=== PATIENT | male | born 1985 | race African-American/Black ===

== ENCOUNTER 2018-08-10 20:44 | Inpatient (IN) | payer MEDICAID ==
[~2018-08-10] VITALS: Ht 170.2 cm; Wt 74.8 kg
[2018-08-10 20:55] VITALS: BP 133/74
[2018-08-10] MEDS ORDERED: NKM (20:55)
--- NOTE | 2018-08-10 20:55 | NUR ---
ED Nurse Note: Pt arrived ED from home, c/o body " twisting" feeling since last night after took " Loratidine". Pt is A/O X 4. Vital signs stable at this time, waiting for orders.
--- NOTE | 2018-08-10 21:10 | NUR ---
ED Nurse Note: Blood sample collected and sent to Lab.
[2018-08-10] MEDS ORDERED: LORazepam 1mg tab ORAL ONE (21:15)
--- NOTE | 2018-08-10 21:18 | NUR ---
ED Nurse Note: Meds given as ordered.
--- NOTE | 2018-08-10 21:20 | Emergency Room Report ---
History of Present Illness General Chief Complaint: General Complaint Source: Patient Present Illness HPI Patient reports that he was having seasonal allergies earlier Had taken his sister's loratadine This caused more tremors and shaking felt twitching Patient had gone to another clinic and was provided with montelukast reports that his twitching has continued Denies any headache denies any chest pain denies any shortness of breath and eyes any vomiting or diarrhea Allergies: Coded Allergies: No Known Allergies (Unverified , 08/10/18) Patient History Past Medical History: see triage record Pertinent Family History: none Reviewed Nursing Documentation: PMH: Agreed; PSxH: Agreed Nursing Documentation-PMH Past Medical History: No Stated History Review of Systems All Other Systems: negative except mentioned in HPI Physical Exam Vital Signs Date Time Temp Pulse Resp B/P (MAP) Pulse Ox O2 Delivery O2 Flow Rate FiO2 08/10/18 20:49 97.9 88 18 137/77 (97) 99 Room Air Sp02 EP Interpretation: reviewed, normal General Appearance: well appearing, no apparent distress Head: normocephalic, atraumatic Eyes: bilateral eye PERRL, bilateral eye EOMI ENT: hearing grossly normal, normal pharynx, TMs + canals normal, uvula midline Neck: full range of motion, supple, no meningismus, no bony tend Respiratory: lungs clear, normal breath sounds, no rhonchi, no respiratory distress, no retraction, no accessory muscle use Cardiovascular #1: normal peripheral pulses, regular rate, rhythm, no edema, no gallop, no JVD, no murmur Gastrointestinal: normal bowel sounds, non tender, soft, no mass, no organomegaly, non-distended, no guarding, no hernia, no pulsatile mass, no rebound Genitourinary: no CVA tenderness Musculoskeletal: normal inspection Neurologic: oriented x3, responsive, manager validation III-XII nml as tested, motor strength/ tone normal, sensory intact Psychiatric: mood/affect normal Skin: normal color, no rash, warm/dry, palpation normal Lymphatic: normal inspection, no adenopathy Medical Decision Making Diagnostic Impression: Primary Impression: Renal failure Additional Impressions: Anemia Hyperkalemia ER Course Given the patient's initial nonspecific complaints blood work was initiated Findings reveal concerning findings with significant anemia and kidney failure with hyperkalemia EKG does not show any ST changes At this time I discussed this with the patient and patient's mom she reports that she has history of anemia but they have not known of any history for the patient On repeat examination all blood work appear to be consistent with initial findings Patient still making urine and therefore further IV hydration was performed Nephrology consulted and patient requires further inpatient care Labs Test 08/10/18 21:13 08/10/18 21:24 08/10/18 22:16 White Blood Count 10.1 K/UL (4.8-10.8) 10.7 K/UL (4.8-10.8) Red Blood Count 2.43 M/UL (4.70-6.10) 2.80 M/UL (4.70-6.10) Hemoglobin 6.4 G/DL (14.2-18.0) 7.4 G/DL (14.2-18.0) Hematocrit 18.0 % (42.0-52.0) 20.7 % (42.0-52.0) Mean Corpuscular Volume 74 FL (80-99) 74 FL (80-99) Mean Corpuscular Hemoglobin 26.5 PG (27.0-31.0) 26.5 PG (27.0-31.0) Mean Corpuscular Hemoglobin Concent 35.8 G/DL (32.0-36.0) 36.0 G/DL (32.0-36.0) Red Cell Distribution Width 12.0 % (11.6-14.8) 12.1 % (11.6-14.8) Platelet Count 199 K/UL (150-450) 199 K/UL (150-450) Mean Platelet Volume 4.7 FL (6.5-10.1) 4.9 FL (6.5-10.1) Neutrophils (%) (Auto) % (45.0-75.0) % (45.0-75.0) Lymphocytes (%) (Auto) % (20.0-45.0) % (20.0-45.0) Monocytes (%) (Auto) % (1.0-10.0) % (1.0-10.0) Eosinophils (%) (Auto) % (0.0-3.0) % (0.0-3.0) Basophils (%) (Auto) % (0.0-2.0) % (0.0-2.0) Differential Total Cells Counted 100 Neutrophils % (Manual) 74 % (45-75) Lymphocytes % (Manual) 14 % (20-45) Monocytes % (Manual) 6 % (1-10) Eosinophils % (Manual) 6 % (0-3) Basophils % (Manual) 0 % (0-2) Band Neutrophils 0 % (0-8) Platelet Estimate Adequate Platelet Morphology Normal Red Blood Cell Morphology Normal Hypochromasia 1+ Anisocytosis 1+ Microcytosis 1+ Sodium Level 141 MMOL/L (136-145) 142 MMOL/L (136-145) Potassium Level 6.4 MMOL/L (3.5-5.1) 6.6 MMOL/L (3.5-5.1) Chloride Level 108 MMOL/L (98-107) 111 MMOL/L (98-107) Carbon Dioxide Level 14 MMOL/L (21-32) 14 MMOL/L (21-32) Anion Gap 19 mmol/L (5-15) 16 mmol/L (5-15) Blood Urea Nitrogen 141 mg/dL (7-18) 136 mg/dL (7-18) Creatinine 29.6 MG/DL (0.55-1.30) 28.6 MG/DL (0.55-1.30) Estimat Glomerular Filtration Rate 2.1 mL/min (>60) 2.2 mL/min (>60) Glucose Level 102 MG/DL (74-106) 125 MG/DL (74-106) Calcium Level 7.7 MG/DL (8.5-10.1) 7.2 MG/DL (8.5-10.1) Urine Color Pale yellow Urine Appearance Slightly cloudy Urine pH 5 (4.5-8.0) Urine Specific [place] 1.010 (1.005-1.035) Urine Protein 4+ (NEGATIVE) Urine Glucose (UA) 1+ (NEGATIVE) Urine Ketones Negative (NEGATIVE) Urine Blood 3+ (NEGATIVE) Urine Nitrite Negative (NEGATIVE) Urine Bilirubin Negative (NEGATIVE) Urine Urobilinogen Normal MG/DL (0.0-1.0) Urine Leukocyte Esterase 1+ (NEGATIVE) Urine RBC 20-30 /HPF (0 - 0) Urine WBC 30-40 /HPF (0 - 0) Urine Squamous Epithelial Cells Few /LPF (NONE/OCC) Urine Amorphous Sediment Many /LPF (NONE) Urine Bacteria Few /HPF (NONE) Urine Fine Granular Casts 2-4 /LPF (NONE) Urine Coarse Granular Casts 5-10 /LPF (NONE) Total Bilirubin 0.3 MG/DL (0.2-1.0) Aspartate Amino Transf (AST/SGOT) 27 U/L (15-37) Alanine Aminotransferase (ALT/SGPT) 16 U/L (12-78) Alkaline Phosphatase 92 U/L (46-116) Total Creatine Kinase 549 U/L (26-308) Creatine Kinase MB 2.8 NG/ML (0.0-3.6) Creatine Kinase MB Relative Index 0.5 Total Protein 7.5 G/DL (6.4-8.2) Albumin 1.6 G/DL (3.4-5.0) Globulin 5.9 g/dL Albumin/Globulin Ratio 0.3 (1.0-2.7) Urine Opiates Screen Negative (NEGATIVE) Urine Barbiturates Screen Negative (NEGATIVE) Phencyclidine (PCP) Screen Negative (NEGATIVE) Urine Amphetamines Screen Negative (NEGATIVE) Urine Benzodiazepines Screen Negative (NEGATIVE) Urine Cocaine Screen Negative (NEGATIVE) Urine Marijuana (THC) Screen Negative (NEGATIVE) Reticulocyte Count 2.2 % (0.5-2.0) EKG Diagnostic Results Rate: normal Rhythm: NSR ST Segments: no acute changes Rhythm Strip Diag. Results EP Interpretation: yes Rate: 60 Rhythm: NSR, no PVC's, no ectopy Chest X-Ray Diagnostic Results Chest X-Ray Diagnostic Results : Chest X-Ray Ordered: Yes # of Views/Limited/Complete: 1 View Indication: Chest Pain EP Interpretation: Yes Interpretation: no consolidation, no effusion, no pneumothorax, other - Cardiomegaly with mild congestion Impression: Other - Cardiomegaly with mild congestion Electronically Signed by: Rebecca Ng, DO CT/MRI/US Diagnostic Results CT/MRI/US Diagnostic Results : Impression CT abdomen pelvisPatchygroundglass hazyalveolar opacities seen within the middle lobe and right lower lobe which maybe infectious vs represent pulmonaryedema. Tree-in-bud nodular opacityseen within the left lower lobe mayreflect transbronchial spread of infection. Small amount of free fluid of uncertain clinical etiology. Mild thickening of the left hemicolon possible colitis. Bilateral trace pleural effusions. Hepatomegaly. Kidneys, gallbladder, pancreas and spleen are unremarkable for a non-infused exam. The appendix is unremarkable. No free air Last Vital Signs Date Time Temp Pulse Resp B/P (MAP) Pulse Ox O2 Delivery O2 Flow Rate FiO2 08/10/18 20:49 97.9 88 18 137/77 (97) 99 Room Air Status: improved Disposition: ADMITTED INPATIENT Condition: Serious Rebecca Ng DO August 10, 2018 21:20
[2018-08-10 21:29] LABS: MEAN CORPUSCULAR VOLUME 74 FL (80-99); PLATELET COUNT 199 K/UL (150-450); RED BLOOD COUNT 2.43 M/UL (4.70-6.10); WHITE BLOOD COUNT 10.1 K/UL (4.8-10.8)
[2018-08-10 21:34] LABS: ANION GAP 19 mmol/L (5-15); BLOOD UREA NITROGEN 141 mg/dL (7-18); CALCIUM 7.7 MG/DL (8.5-10.1); CARBON DIOXIDE 14 MMOL/L (21-32); CHLORIDE 108 MMOL/L (98-107); CREATININE 29.6 MG/DL (0.55-1.30); SODIUM 141 MMOL/L (136-145)
[2018-08-10 21:39] LABS: HEMOGLOBIN 6.4 G/DL (14.2-18.0)
[2018-08-10 21:47] LABS: POTASSIUM 6.4 MMOL/L (3.5-5.1)
--- NOTE | 2018-08-10 22:06 | NUR ---
HAND-OFF: Report given to Ignaciofni/RN for continue care.
--- NOTE | 2018-08-10 22:07 | NUR ---
ED Nurse Note: Received report from Gabriela PARKER. Pt awaiting blood transfusion but labs sent and consent signed.
[2018-08-10 22:38] LABS: HEMATOCRIT 20.7 % (42.0-52.0); HEMOGLOBIN 7.4 G/DL (14.2-18.0); MEAN CORPUSCULAR VOLUME 74 FL (80-99); PLATELET COUNT 199 K/UL (150-450); RED CELL DISTRIBUTION WIDTH 12.1 % (11.6-14.8); WHITE BLOOD COUNT 10.7 K/UL (4.8-10.8)
[2018-08-10 22:50] VITALS: BP 152/105
[2018-08-10 22:55] LABS: APPEARANCE,URINE SLIGHTLY CLOUDY; BILIRUBIN, URINE NEGATIVE (NEGATIVE); COLOR,URINE PALE YELLOW; GLUCOSE, URINE (UA) 1+ (NEGATIVE); KETONES,URINE NEGATIVE (NEGATIVE); LEUKOCYTE ESTERASE ,URINE 1+ (NEGATIVE); NITRITE,URINE NEGATIVE (NEGATIVE); PH,URINE 5 (4.5-8.0); PROTEIN,URINE 4+ (NEGATIVE); UROBILINOGEN,URINE NORMAL MG/DL (0.0-1.0)
[2018-08-10] MEDS ORDERED: Sodium Polystyrene Sulfonate 15gm Powder ORAL ONE (23:00)
[2018-08-10 23:18] LABS: ALANINE AMINOTRANSFERASE 16 U/L (12-78); ALBUMIN 1.6 G/DL (3.4-5.0); ALBUMIN/GLOBULIN RATIO 0.3 (1.0-2.7); ALKALINE PHOSPHATASE 92 U/L (46-116); ANION GAP 16 mmol/L (5-15); ASPARTATE AMINO TRANSFERASE 27 U/L (15-37); BILIRUBIN,TOTAL 0.3 MG/DL (0.2-1.0); BLOOD UREA NITROGEN 136 mg/dL (7-18); CALCIUM 7.2 MG/DL (8.5-10.1); CARBON DIOXIDE 14 MMOL/L (21-32); CHLORIDE 111 MMOL/L (98-107); CKMB 2.8 NG/ML (0.0-3.6); CREATINE KINASE 549 U/L (26-308); CREATININE 28.6 MG/DL (0.55-1.30); SODIUM 142 MMOL/L (136-145)
[2018-08-10 23:19] LABS: POTASSIUM 6.6 MMOL/L (3.5-5.1)
[2018-08-11] VITALS (9 sets, daily range): BP systolic 136–151; BP diastolic 85–97
--- NOTE | 2018-08-11 00:20 | NUR ---
TRANSFER TO FLOOR: Patient transferred to [facility] as ordered, per DR MONSALVE. Report given to Yumiko PARKER. Belongings and medications given to Yumiko PARKER. Family at bedside at time of transfer .
--- NOTE | 2018-08-11 00:30 | NUR ---
NURSE NOTES: RECEIVED PT FROM KEITH BOO. PT IS VERY LETHARGIC AND UNSTEADY ON HIS FEET. RN MENTIONED THAT HE RECEIVED ATIVAN IN THE ER D/T ANXIETY. PT IS X4, ABLE TO MAKE NEEDS KNOWN HOWEVER. SHANK RANDER SHOWING NSR. ON RA, SATING HIGH 90'S. SKIN IS CLEAN, DRY, INTACT. LAC 20G, RUNNING NS BOLUS. WILL CONTACT UOMOTO W/ ADMITTING ORDERS. BED IS LOCKED IS LOWEST POSITION, SR X3, CALL KIRK W/ IN REACH, BED ALARM ON. WILL CONTINUE TO MONITOR AND FOLLOW W/ PLAN OF CARE.
--- NOTE | 2018-08-11 02:00 | NUR ---
NURSE NOTES: SPOKE W/ UOMOTO FOR ADMIT ORDERS. DID NOT ORDER ANYTHING FOR LABS. RUNNING NS @ 75. PT IS STABLE AT THIS TIME. WILL CONTINUE TO MONITOR.
--- NOTE | 2018-08-11 06:57 | NUR ---
HAND-OFF: Report given to KEITH KOVACS.
[2018-08-11 07:27] LABS: HEMATOCRIT 18.5 % (42.0-52.0); MEAN CORPUSCULAR VOLUME 75 FL (80-99); PLATELET COUNT 213 K/UL (150-450); RED BLOOD COUNT 2.45 M/UL (4.70-6.10); RED CELL DISTRIBUTION WIDTH 12.7 % (11.6-14.8); WHITE BLOOD COUNT 10.5 K/UL (4.8-10.8)
--- NOTE | 2018-08-11 07:30 | NUR ---
NURSE NOTES: Pt in bed eating breakfast from [employer] that was brought in from sister, pt in high fowlers, pt Ox3 seems groggy, lab just reported low levels of HCT and HGB will report to Md and get started on blood consent. Pt denies pain, IV intact, LT Ac 20 running NS @ 75, no s/s of distress or sob noted.
[2018-08-11 07:36] LABS: HEMOGLOBIN 6.4 G/DL (14.2-18.0)
[2018-08-11 07:58] LABS: ALANINE AMINOTRANSFERASE 14 U/L (12-78); ALBUMIN 1.6 G/DL (3.4-5.0); ALBUMIN/GLOBULIN RATIO 0.3 (1.0-2.7); ALKALINE PHOSPHATASE 99 U/L (46-116); ANION GAP 18 mmol/L (5-15); ASPARTATE AMINO TRANSFERASE 29 U/L (15-37); BILIRUBIN,TOTAL 0.3 MG/DL (0.2-1.0); BLOOD UREA NITROGEN 140 mg/dL (7-18); CALCIUM 7.3 MG/DL (8.5-10.1); CARBON DIOXIDE 12 MMOL/L (21-32); CHLORIDE 113 MMOL/L (98-107); CREATININE 28.9 MG/DL (0.55-1.30); SODIUM 143 MMOL/L (136-145)
[2018-08-11 08:01] LABS: POTASSIUM 6.5 MMOL/L (3.5-5.1)
[2018-08-11] MEDS: Heparin 5000 units/ml inj SUBQ SCH ×2 (09:00→21:00)
--- NOTE | 2018-08-11 09:40 | Diagnostic Imaging Report ---
Indication: Abdominal pain Technique: Continuous helical transaxial imaging of the abdomen and pelvis was obtained from the lung bases to the pubic symphysis. No intravenous contrast was administered. Coronal 2-D reformats were also obtained. Automatic Exposure Control was utilized. Total Dose length Product (DLP): 591.[address] Dose Index Volume (CTDIvol): 11.83 mGy Comparison: none Findings: Mild patchy groundglass opacities are present within the visualized lung bases, nonspecific in nature. Trace bilateral pleural effusions are present. The left hemidiaphragm is slightly elevated. Evaluation of the abdomen and especially solid organs is limited as no IV contrast was given oral contrast. The liver is mildly prominent in size. There is a small amount of free fluid within the pelvis. The appendix is normal. Bowel gas pattern is nonobstructive. The left hemicolon shows a mild questionable wall thickening. Evaluation is limited as obtained on this study. Gallbladder is contracted. There is no evidence of renal stones or urinary tract stones or hydronephrosis. IMPRESSION: Patchy groundglass opacities within the lung bases nonspecific in nature. Trace bilateral pleural effusions. Trace free fluid within the pelvis, undetermined etiology. Question of thickening of the left hemicolon. Colitis not excluded. Consider follow-up and the oral IV contrast repeat CT. Prominent liver Normal appendix Contracted gallbladder not evaluated well on this exam. [facility] has communicated the preliminary results to the Emergency Department. Their findings are largely concordant with this report. The CT scanner at [facility] is accredited by the [employer] and the scans are performed using dose optimization techniques as appropriate to a performed exam including Automatic Exposure control.
--- NOTE | 2018-08-11 10:09 | Consultation ---
Ander Santiago MD August 11, 2018 10:09
--- NOTE | 2018-08-11 10:18 | NUR ---
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 ANEMIA . RENAL FAILURE VS: BP 150/96, P 88, T 97.9, RR 18, SpO2 99 RBC 2.43, H&H 6.4/18.0, K 6.4, BUN 141, CR 29.[address]:Patchy groundglass opacities within the lung bases nonspecific in nature IS:ATIVAN 1mg NS x1L IV KAYEXALATE 30gm ADMITTED TO TELE DCP: RETURN HOME
[2018-08-11] MEDS ORDERED: Heparin Sod 1000 units/ml 10ml INJ SCH (11:00)
[2018-08-11] MEDS ORDERED: Heparin1,000 units/500ml Premix(Conc:2 units/ml) INJ SCH ×2 (11:00→11:14)
[2018-08-11] MEDS ORDERED: Lidocaine 1% Plain 30 ml INJ SCH (11:00)
[2018-08-11 11:13] LABS: IRON 136 ug/dL (50-175); TOTAL IRON BINDING CAPACITY 152 ug/dL (250-450)
[2018-08-11 11:17] LABS: % IRON SATURATION 89 % (15-50)
--- NOTE | 2018-08-11 11:23 | Diagnostic Imaging Report ---
Indication: Chest pain Comparison: None A single view chest radiograph was obtained. Findings: Borderline cardiomegaly demonstrated. Prominent pulmonary vascularity noted. There is a trace left pleural effusion noted with blunting of the left costophrenic angle. The bones are unremarkable. IMPRESSION: Mild pulmonary vascular congestion suspected. Left pleural effusion. Please correlate clinically.
[2018-08-11 11:36] LABS: FERRITIN 1392 NG/ML (8-388)
--- NOTE | 2018-08-11 12:28 | Diagnostic Imaging Report ---
Indication:Elevated Bun and Creatinine. Technique: Grayscale and duplex Doppler imaging of the kidneys performed. Comparison: None Findings: Kidneys are markedly echogenic but normal in size without atrophy. The right kidney measures 12.9 cm in length. The left kidney measures 11.9 cm in length. There is no hydronephrosis. The urinary bladder is unremarkable. IVC is unremarkable. IMPRESSION: Medical renal disease
--- NOTE | 2018-08-11 12:37 | Diagnostic Imaging Report ---
Indication: Patient requires hemodialysis. Findings: After the indications, procedure, risks, complications, and alternatives of the procedure were explained, written informed consent was obtained. The neck was prepped with alcohol. All elements of maximal sterile barrier technique were followed including usage of a cap, mask, sterile gown, sterile gloves, hand hygiene and a large sterile sheet. 1% lidocaine was used to anesthetize the skin. Sonographic evaluation was performed demonstrating a patent and compressible right jugular vein. Access was obtained under real-time ultrasound guidance using an 18 gauge needle and a digital image was saved in archive. An 0.035 wire was then advanced into the vein. Needle exchanged for a dilator. A 13 [place] x15 cm temporary hemodialysis catheter was then advanced over the wire. Wire was removed. Catheter was secured to the skin using 2-0 Prolene suture. Both ports aspirate and flush easily. Fluoroscopic imaging was utilized to negotiate the 035 wire into position. Final position of the hemodialysis catheter was confirmed by fluoroscopy. Total fluoroscopic time 21 seconds. The catheter is cleared for use. Impression: Successful placement of right jugular hemodialysis catheter.
--- NOTE | 2018-08-11 15:02 | Cardiology Report ---
APPROVED REPORT EXAM: Two-dimensional and M-mode echocardiogram with Doppler and color Doppler. INDICATION Arrhythmia M-Mode DIMENSIONS IVSd0.8 (0.7-1.1cm)Left Atrium (MM)3.5 (1.6-4.0cm) LVDd5.3 (3.5-5.6cm)Aortic Root3.3 (2.0-3.7cm) PWd0.9 (0.7-1.1cm)Aortic Cusp Exc.2.0 (1.5-2.0cm) LVDs3.4 (2.5-4.0cm) PWs1.4 cm Normal left ventricular chamber size. Mildly depressed systolic function and wall motion. Left ventricular ejection fraction estimated to be 50 %. No evidence of left ventricular hypertrophy. No evidence of pericardial effusion. Mild right atrial enlargement. Right ventricular chamber sizes at upper limits of normal. Left atrial chamber size is within normal limits. Normal appearing aortic valve structure. Mildly thickened mitral valve leaflets with normal excursion. Mitral annulus and aortic root calcification. Normal pulmonic valve structure. Normal tricuspid valve structure. IVC is normal in size with physiological collapse. A color flow and spectral Doppler study was performed and revealed: No aortic insufficiency. Mild mitral regurgitation. Normal left ventricular diastolic function. Mild tricuspid regurgitation. Tricuspid systolic velocities suggests peak right ventricular systolic pressure of 46 mmHg, consistent with moderate pulmonary hypertension. No pulmonic regurgitation present.
--- NOTE | 2018-08-11 16:30 | History and Physical Report ---
DATE OF ADMISSION: 08/10/2018 CHIEF COMPLAINT: Acute renal failure. HISTORY OF PRESENT ILLNESS: The patient is a 32-year-old male. He has no past medical history, who presented to the emergency room with complaints of feeling "jittery." His laboratory tests were significant for potassium of 6.4 and creatinine of 30 with a BUN of 141, bicarb 14. He is now admitted for further evaluation for renal failure. He has also noted to be anemic with a hemoglobin of 6.4. He denies prior history of kidney problems. No family history of kidney problems. States that he has been peeing normally and has been drinking fluids normally. Denies any diarrhea. PAST MEDICAL HISTORY: None. PAST SURGICAL HISTORY: None. CURRENT MEDICATIONS: Include only Advil as needed. FAMILY HISTORY: Noncontributory. SOCIAL HISTORY: The patient denies any alcohol or drugs. The patient does smoke cigarettes. REVIEW OF SYSTEMS: GENERAL: No fevers or chills. HEENT: No headaches or visual changes. CARDIOPULMONARY: No chest pain or shortness of breath. GASTROINTESTINAL: No nausea or vomiting. GENITOURINARY: No urgency or frequency. MUSCULOSKELETAL: No joint pain or swelling. NEUROLOGICAL: No history of seizures. PHYSICAL EXAMINATION: VITAL SIGNS: Temperature 96.8, pulse 65, respirations 19, and blood pressure 136/85. GENERAL: The patient is well developed, in no apparent distress. HEART: Regular rate and rhythm. LUNGS: Clear. ABDOMEN: Soft, nontender, and nondistended. EXTREMITIES: Without clubbing, cyanosis, or edema. LABORATORY DATA: White count 10, hemoglobin 6.4, hematocrit 18, and platelet count 191. Sodium 141, potassium 6.4, chloride 108, bicarb 14, BUN 141, and creatinine was 30. Urine showed 30 to 40 wbc's. ASSESSMENT: This is a 32-year-old male with complaints of acute renal failure and anemia suspect secondary to renal failure. PLAN: IV hydration. Check renal ultrasound, HIV and hepatitis serologies. Check an ELIAS. Renal consultation has been obtained. The patient likely will require dialysis. He also needs transfusion. He is in agreement with both if needed. Cezar Slater M.D. DR: JERRY JOB#: [id number] CC:
--- NOTE | 2018-08-11 19:31 | NUR ---
HAND-OFF: Report given to arcadio kirby Rn.
--- NOTE | 2018-08-11 19:35 | NUR ---
NURSE NOTES: Received report from Earline Douglas RN. Patient in bed AAO X2-3 with slight grogginess noted. Family at bedside. No complaints of acute pain or discomfort at this time. Kept clean, dry, and comfortable in bed. IV line intact and patent with note Right IJ Ozzie catheter (triple lumen) for HD use; intact and patent. Placed on continuous cardiac monitoring per protocol. Labs reviewed with MD, no new orders at this time. Needs and wants anticipated and attended, will continue plan of care and monitor for any changes noted. Received HD today 1 PRBC transfused today for low H&H. Will monitor labs ABG obtained. MD aware Addendum: 08/12/18 at 0231 by MESFIN ECHEVARRIA RN Safety precaution in place; siderails X3 up, call light within reach, bed in lowest position, brakes and alarm on at all times. Will continue to monitor.
--- NOTE | 2018-08-11 22:30 | Consultation ---
DATE OF CONSULTATION: 08/11/2018 NEPHROLOGY CONSULTATION CONSULTING PHYSICIAN: Ander Santiago M.D. REFERRING PHYSICIAN: Cezar Slater M.D. REASON FOR CONSULTATION: Renal failure. HISTORY OF PRESENT ILLNESS: This is an unfortunate 32-year-old, male, who has been brought to the emergency room of [facility] with not feeling good for at least a week. He is very confused, has been having some twitching. History is taken from the chart. He was found to have a BUN of 140 and creatinine of 29.6, hemoglobin was 6.4. This history is available he has had any medical issues in the past. It seems that he might have been HIV-positive; however,he has not been taking any medication. There is a report by the mother apparently he has had any health issues or has been apparently pretty healthy. A urinalysis is showing evidence of 4+ protein and there is a lot of granular casts and some pyuria. PAST MEDICAL HISTORY: Unobtainable. He is very confused. PAST MEDICAL HISTORY: Unobtainable. FAMILY HISTORY: Unobtainable. MEDICATIONS: There is no record of any medications. ALLERGIES: Unknown. REVIEW OF SYSTEMS: Impossible, he is very confused at this point. PHYSICAL EXAMINATION: GENERAL: This is a well muscular young man, lot of tattoos all over his body. VITAL SIGNS: Blood pressure 136/85, pulse of 67, respirations 19, temperature 96.8. HEENT: Head is atraumatic. Eyes, pupils reactive to light. No evidence of papilledema. Ears, canals are clear. Tympanic membrane intact. Nose, nares are patent without any nasal discharge. Throat without inflammation or exudate. NECK: Supple. Jugular venous distention is within normal limits. No cervical adenopathy. No thyromegaly. HEART: Regular rhythm. No gallop. LUNGS: Decreased air excursion bilaterally. ABDOMEN: Supple. Bowel sounds positive. No hepatosplenomegaly. EXTREMITIES: Lower extremity shows no cyanosis or clubbing. No pedal edema. NEUROLOGICAL: Cranial nerves grossly intact. He has been very confused. Asterixis is positive. LABORATORY DATA: Sodium of , potassium 6.5, chloride 113, carbon dioxide 18, BUN is 140, creatinine is 28.9. WBC 10.5, hemoglobin is 6.4, hematocrit 18.5, and platelets of 213,000, 84% neutrophils, 8% lymphocytes, and 4% eosinophils. IMPRESSION: 1. By looking at the numbers that he has it seems that he might have had longstanding chronic kidney disease. Now, it seems that he is uremic and he approached end-stage renal disease, however acute on chronic kidney injury is not completely excluded. 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 2. Significant anemia most likely due to underlying kidney disease with evidence of some iron-deficiency anemia versus thalassemia versus sideroblastic anemia. Needs to be considered. 3. There is no signs of fluid overload at this point. PLAN: 1. He probably needs to have dialysis catheter put in place. I am going to initiate dialysis today slowly in the presence of significant uremia that he has. He probably needs to be dialyzed for 2 to 3 days in a row. 2. I am going to check iron studies on him today. Renal ultrasound is going to be ordered. We are going also to check uric acid and serum immunoelectrophoresis is going to be orders as well as the urine immunoelectrophoresis. At the end, I would like to thank you, Dr. Slater, for letting me be involved in care of this very nice gentleman. Please do not hesitate to contact me if you have any questions. Sincerely, Ander Santiago M.D. DR: Nate JOB#: [id number] CC:
[2018-08-12] VITALS: BP 128/79
--- NOTE | 2018-08-12 02:31 | NUR ---
NURSE NOTES: Patient in bed with family at bedside. No S/S of distress noted at this time. Will continue to monitor.
[2018-08-12 04:00] VITALS: BP 134/97
--- NOTE | 2018-08-12 04:00 | NUR ---
NURSE NOTES: Spoke and left message for Dmitry Slater MD regarding recent K level. Awaiting call-back. NNO at this time. Continue to monitor.
--- NOTE | 2018-08-12 07:30 | NUR ---
NURSE NOTES: Received report from Kostas Chavarria RN. Patient in bed AAO X 3. Mother at bedside. No complaints of acute pain or discomfort at this time. Kept clean, dry, and comfortable in bed. IV line intact and patent with note Right IJ Ozzie catheter (triple lumen) for HD use; intact and patent. Placed on continuous cardiac monitoring per protocol. Will continue plan of care and monitor for any changes noted.
--- NOTE | 2018-08-12 07:34 | NUR ---
HAND-OFF: Report given to Earline Mcdermott RN. Patient in stable condition. Endorsed plan of care
[2018-08-12 08:00] VITALS: BP 132/84
--- NOTE | 2018-08-12 08:45 | NUR ---
NURSE NOTES: Dr. Slater is made aware in person regarding no labs ordered today and previous labs on 08/12/18. Dr. Slater states he is aware and will review chart.
[2018-08-12] MEDS: Heparin 5000 units/ml inj SUBQ SCH ×2 (09:00→20:36)
--- NOTE | 2018-08-12 10:47 | Nephrology Progress Note ---
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 HIV nephropathy, also ANCA or Lupus or TMA to be considered 2) Still some Uremia 3) Normal size kidneys 4) No fluid overload Plan: Will HD today again Check ANCA, ELIAS, Complements, ESR, Hep B and HEP C Will need renal BX urgently Subjective Subjective He had HD yesterday, much more alert today, able to talk, Renal US is showing normal kidney size, no hydro Objective Objective Last 24 Hour Vital Signs Date Time Temp Pulse Resp B/P (MAP) Pulse Ox O2 Delivery O2 Flow Rate FiO2 08/12/18 09:00 Room Air 08/12/18 08:00 96.7 86 20 132/84 (100) 96 08/12/18 07:41 90 08/12/18 04:00 98.5 88 18 134/97 (109) 100 08/12/18 04:00 81 08/12/18 00:00 98.1 94 18 128/79 (95) 100 08/12/18 00:00 86 08/11/18 21:00 Room Air 08/11/18 20:00 86 08/11/18 20:00 99.9 108 20 138/85 (102) 96 08/11/18 16:00 98.1 79 20 150/93 (112) 98 08/11/18 15:43 65 08/11/18 11:55 78 22 141/93 (109) 99 08/11/18 11:50 85 22 141/97 (112) 99 08/11/18 11:45 88 22 144/95 (111) 99 08/11/18 11:16 86 20 Intake and Output 08/11/18 08/12/18 18:59 06:59 Intake Total 315 ml 681.25 ml Balance 315 ml 681.25 ml Intake Oral 240 ml 120 ml IV Total 75 ml 561.25 ml # Voids 1 # Bowel Movements 2 1 Height (Feet): 5 Height (Inches): 7.00 Weight (Pounds): 165 General Appearance: WD/WN, no apparent distress EENT: PERRL/EOMI Neck: non-tender Cardiovascular: normal rate, regular rhythm Respiratory/Chest: lungs clear Abdomen: normal bowel sounds, non tender, soft 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
--- NOTE | 2018-08-12 11:10 | NUR ---
NURSE NOTES: Spoke with Dr. Santiago. Understands that CT biopsy of kidney is postpone til Tuesday. In addition, HD was called for 08/12.
--- NOTE | 2018-08-12 11:42 | General Progress Note ---
Assessment/Plan Problem List: (1) HIV antibody positive ICD Codes: Z21 - Asymptomatic human immunodeficiency virus [HIV] infection status SNOMED: 004803139 (2) Hyperkalemia ICD Codes: E87.5 - Hyperkalemia SNOMED: 27097432 (3) Anemia ICD Codes: D64.9 - Anemia, unspecified SNOMED: 855069905 (4) Renal failure ICD Codes: N19 - Unspecified kidney failure SNOMED: 35072292 Status: stable Assessment/Plan: follow up labs HD Subjective ROS Limited/Unobtainable: No Constitutional: Reports: malaise, weakness HEENT: Reports: no symptoms Cardiovascular: Reports: no symptoms Respiratory: Reports: no symptoms Gastrointestinal/Abdominal: Reports: no symptoms Genitourinary: Reports: no symptoms Neurologic/Psychiatric: Reports: no symptoms Endocrine: Reports: no symptoms Hematologic/Lymphatic: Reports: anemia Allergies: Coded Allergies: No Known Allergies (Unverified , 08/10/18) All Systems: reviewed and negative except above Subjective feels better after HD. no cp/sob. Objective Last 24 Hour Vital Signs Date Time Temp Pulse Resp B/P (MAP) Pulse Ox O2 Delivery O2 Flow Rate FiO2 08/12/18 09:00 Room Air 08/12/18 08:00 96.7 86 20 132/84 (100) 96 08/12/18 07:41 90 08/12/18 04:00 98.5 88 18 134/97 (109) 100 08/12/18 04:00 81 08/12/18 00:00 98.1 94 18 128/79 (95) 100 08/12/18 00:00 86 08/11/18 21:00 Room Air 08/11/18 20:00 86 08/11/18 20:00 99.9 108 20 138/85 (102) 96 08/11/18 16:00 98.1 79 20 150/93 (112) 98 08/11/18 15:43 65 08/11/18 11:55 78 22 141/93 (109) 99 08/11/18 11:50 85 22 141/97 (112) 99 08/11/18 11:45 88 22 144/95 (111) 99 Intake and Output 08/11/18 08/12/18 18:59 06:59 Intake Total 315 ml 681.25 ml Balance 315 ml 681.25 ml Intake Oral 240 ml 120 ml IV Total 75 ml 561.25 ml # Voids 1 # Bowel Movements 2 1 Laboratory Tests 08/12/18 11:00: Erythrocyte Sedimentation Rate [Pending], c-ANCA Titer [Pending], p-ANCA Titer [ Pending], Complement C3 [Pending], Complement C4 [Pending], Total Complement ( CH50) [Pending], Hepatitis B Surface Antigen [Pending], Hepatitis B Surface Antibody, Quant [Pending], Hepatitis C Antibody [Pending] Height (Feet): 5 Height (Inches): 7.00 Weight (Pounds): 165 General Appearance: WD/WN, alert Neck: supple Respiratory/Chest: lungs clear Abdomen: normal bowel sounds, non tender, soft, no organomegaly Edema: no edema noted Arm (L), no edema noted Arm (R), no edema noted Leg (L), no edema noted Leg (R), no edema noted Pedal (L), no edema noted Pedal (R), no edema noted 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
[2018-08-12 12:00] VITALS: BP 145/83
[2018-08-12 12:12] LABS: HEMATOCRIT 21.1 % (42.0-52.0); HEMOGLOBIN 7.3 G/DL (14.2-18.0); MEAN CORPUSCULAR VOLUME 76 FL (80-99); PLATELET COUNT 150 K/UL (150-450); RED BLOOD COUNT 2.79 M/UL (4.70-6.10); RED CELL DISTRIBUTION WIDTH 12.9 % (11.6-14.8); WHITE BLOOD COUNT 7.6 K/UL (4.8-10.8)
[2018-08-12 12:22] LABS: ALANINE AMINOTRANSFERASE 16 U/L (12-78); ALBUMIN 1.5 G/DL (3.4-5.0); ALBUMIN/GLOBULIN RATIO 0.3 (1.0-2.7); ALKALINE PHOSPHATASE 92 U/L (46-116); ANION GAP 14 mmol/L (5-15); ASPARTATE AMINO TRANSFERASE 29 U/L (15-37); BILIRUBIN,TOTAL 0.4 MG/DL (0.2-1.0); BLOOD UREA NITROGEN 88 mg/dL (7-18); CALCIUM 7.4 MG/DL (8.5-10.1); CARBON DIOXIDE 22 MMOL/L (21-32); CHLORIDE 106 MMOL/L (98-107); CREATININE 20.4 MG/DL (0.55-1.30); POTASSIUM 4.7 MMOL/L (3.5-5.1); SODIUM 141 MMOL/L (136-145)
--- NOTE | 2018-08-12 14:21 | NUR ---
NURSE NOTES: Left a voice message to Dr. Slater regarding updated labs on 08/12/18. This includes Improved hgb 7.3, hct 21.2. IN addition, calcium 7.4. Awaiting orders.
[2018-08-12 16:00] VITALS: BP 146/84
--- NOTE | 2018-08-12 17:06 | NUR ---
CASE MANAGEMENT: REVIEW SI: RENAL FAILURE DIALYSIS TUNNEL CATH PLACEMENT 08/11 T 96.7 HR 86 RR 20 BP 145/83 SAT 96% ROOM AIR H/H 7.3/21.1 BUN 88 CR 20.4 IS: NS IVF @75ML/HR HD PRN TELEMETRY UNIT STATUS DCP: PATIENT IS FROM HOME
--- NOTE | 2018-08-12 18:45 | NUR ---
NURSE NOTES: Dialysis completed. No fluid removal.
--- NOTE | 2018-08-12 19:30 | NUR ---
HAND-OFF: Report given to KEITH Cantu. patient is resting comfortably in bed.
--- NOTE | 2018-08-12 19:48 | NUR ---
NURSE NOTES: Received bedside report from KEITH Carbajal.Patient stable,A&Ox3-4,no c/o pain,no respiratory distress noted,SR on rn cardiac rehab,tolerated r/air well,IV asymptomatic,intact on R hand 22G running with NS @ 75ml/hr,family at a bedside,bed secured in a low safety position,call light within a reach.Will continue to monitor and follow POC.
[2018-08-12 20:00] VITALS: BP 144/82
[2018-08-12] MEDS ORDERED: Dyna-Hex 2% Top Sol 2oz TOPIC SCH (20:00)
[2018-08-13] VITALS: BP 154/63
[2018-08-13 05:00] VITALS: BP 148/83
--- NOTE | 2018-08-13 07:00 | NUR ---
NURSE NOTES: Received bedside report from KEITH Cantu. Patient is asleep in bed with mother at bedside. No respiratory distress noted. Patient is breathing even and unlabored on room air. Patient is NSR on night monitor. IV is asymptomatic, intact on Left hand 22G running with NS @ 75ml/hr. Bed secured in a low safety position,call light within a reach.Will continue to monitor and follow plan of care.
--- NOTE | 2018-08-13 07:05 | NUR ---
HAND-OFF: Report given to KEITH Carbajal.Patient stable.
[2018-08-13 07:16] LABS: HEMATOCRIT 19.4 % (42.0-52.0); MEAN CORPUSCULAR VOLUME 76 FL (80-99); PLATELET COUNT 141 K/UL (150-450); RED BLOOD COUNT 2.54 M/UL (4.70-6.10)
[2018-08-13 07:19] LABS: HEMOGLOBIN 6.8 G/DL (14.2-18.0)
[2018-08-13 07:34] LABS: ALANINE AMINOTRANSFERASE 14 U/L (12-78); ALBUMIN 1.4 G/DL (3.4-5.0); ALBUMIN/GLOBULIN RATIO 0.2 (1.0-2.7); ALKALINE PHOSPHATASE 83 U/L (46-116); ANION GAP 8 mmol/L (5-15); ASPARTATE AMINO TRANSFERASE 30 U/L (15-37); BILIRUBIN,TOTAL 0.2 MG/DL (0.2-1.0); BLOOD UREA NITROGEN 60 mg/dL (7-18); CALCIUM 7.4 MG/DL (8.5-10.1); CARBON DIOXIDE 26 MMOL/L (21-32); CHLORIDE 104 MMOL/L (98-107); CREATININE 15.4 MG/DL (0.55-1.30); POTASSIUM 4.3 MMOL/L (3.5-5.1); SODIUM 138 MMOL/L (136-145)
[2018-08-13 07:54] VITALS: BP 117/86
[2018-08-13] MEDS: Heparin 5000 units/ml inj SUBQ SCH (08:39)
--- NOTE | 2018-08-13 09:42 | Nephrology Progress Note ---
Assessment/Plan Problem List: (1) Anemia in chronic kidney disease (2) Nephrotic syndrome (3) End-stage renal disease (4) HIV antibody positive (5) Hyperkalemia Plan HD arranged, needs av access, epogen, long discuswion about hd and pd and transplant with him and mother Subjective Constitutional: Reports: weakness HEENT: Reports: no symptoms Genitourinary: Reports: no symptoms Neurologic/Psychiatric: Reports: no symptoms Objective Objective Last 24 Hour Vital Signs Date Time Temp Pulse Resp B/P (MAP) Pulse Ox O2 Delivery O2 Flow Rate FiO2 08/13/18 09:00 Room Air 08/13/18 07:54 98.8 92 17 117/86 (96) 97 08/13/18 07:45 84 08/13/18 05:00 98.8 79 20 148/83 (104) 95 08/13/18 04:00 85 08/13/18 03:54 85 08/13/18 00:00 83 08/13/18 00:00 97.7 75 20 154/63 (93) 96 08/12/18 23:46 83 08/12/18 21:00 Room Air 08/12/18 20:00 98.4 84 20 144/82 (102) 96 08/12/18 16:00 98.4 83 20 146/84 (104) 97 08/12/18 15:32 80 08/12/18 12:00 97.9 83 20 145/83 (103) 96 08/12/18 11:49 83 Intake and Output 08/12/18 08/13/18 18:59 06:59 Intake Total 375 ml 900 ml Output Total 550 ml 300 ml Balance -175 ml 600 ml Intake Oral 150 ml IV Total 225 ml 900 ml Output Urine Total 550 ml 300 ml # Bowel Movements 2 Laboratory Tests 08/12/18 11:00: White Blood Count 7.6, Red Blood Count 2.79L, Hemoglobin 7.3L, Hematocrit 21.1L , Mean Corpuscular Volume 76L, Mean Corpuscular Hemoglobin 26.3L, Mean Corpuscular Hemoglobin Concent 34.7, Red Cell Distribution Width 12.9, Platelet Count 150, Mean Platelet Volume 5.9L, Neutrophils (%) (Auto) , Lymphocytes (%) ( Auto) , Monocytes (%) (Auto) , Eosinophils (%) (Auto) , Basophils (%) (Auto) , Differential Total Cells Counted 100, Neutrophils % (Manual) 74, Lymphocytes % ( Manual) 14L, Monocytes % (Manual) 8, Eosinophils % (Manual) 4H, Basophils % ( Manual) 0, Band Neutrophils 0, Platelet Estimate Adequate, Platelet Morphology Normal, Microcytosis 1+, Erythrocyte Sedimentation Rate 144H, Sodium Level 141, Potassium Level 4.7, Chloride Level 106, Carbon Dioxide Level 22, Anion Gap 14, Blood Urea Nitrogen 88H, Creatinine 20.4H, Estimat Glomerular Filtration Rate 3.2, Glucose Level 107H, Calcium Level 7.4L, Total Bilirubin 0.4, Aspartate Amino Transf (AST/SGOT) 29, Alanine Aminotransferase (ALT/SGPT) 16, Alkaline Phosphatase 92, Total Protein 7.4, Albumin 1.5L, Globulin 5.9, Albumin/Globulin Ratio 0.3L, c-ANCA Titer [Pending], p-ANCA Titer [Pending], Complement C3 [ Pending], Complement C4 [Pending], Total Complement (CH50) [Pending], Hepatitis B Surface Antigen [Pending], Hepatitis B Surface Antibody, Quant [Pending], Hepatitis C Antibody [Pending] 08/12/18 11:50: Prothrombin Time 10.7, Prothromb Time International Ratio 1.0, Activated Partial Thromboplast Time 39H, Platelet Function Screen (ADP) [Pending], Platelet Function Scrn (Epinephrine [Pending] 08/13/18 06:15: White Blood Count 6.0, Red Blood Count 2.54L, Hemoglobin 6.8*L, Hematocrit 19.4L , Mean Corpuscular Volume 76L, Mean Corpuscular Hemoglobin 26.6L, Mean Corpuscular Hemoglobin Concent 34.9, Red Cell Distribution Width 13.0, Platelet Count 141L, Mean Platelet Volume 5.7L, Neutrophils (%) (Auto) , Lymphocytes (%) (Auto) , Monocytes (%) (Auto) , Eosinophils (%) (Auto) , Basophils (%) (Auto) , Differential Total Cells Counted 100, Neutrophils % (Manual) 66, Lymphocytes % ( Manual) 19L, Monocytes % (Manual) 10, Eosinophils % (Manual) 5H, Basophils % ( Manual) 0, Band Neutrophils 0, Platelet Estimate DecreasedL, Platelet Morphology Normal, Microcytosis 1+, Sodium Level 138, Potassium Level 4.3, Chloride Level 104, Carbon Dioxide Level 26, Anion Gap 8, Blood Urea Nitrogen 60H, Creatinine 15.4H, Estimat Glomerular Filtration Rate 4.4, Glucose Level 93 , Calcium Level 7.4L, Total Bilirubin 0.2, Aspartate Amino Transf (AST/SGOT) 30 , Alanine Aminotransferase (ALT/SGPT) 14, Alkaline Phosphatase 83, Total Protein 7.2, Albumin 1.4L, Globulin 5.8, Albumin/Globulin Ratio 0.2L, Hypochromasia 1+ Height (Feet): 5 Height (Inches): 7.00 Weight (Pounds): 165 General Appearance: no apparent distress, alert EENT: normal ENT inspection Neck: normal alignment Cardiovascular: normal rate, regular rhythm, systolic murmur Respiratory/Chest: normal breath sounds Abdomen: non tender, soft Extremities: other - no edema 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
--- NOTE | 2018-08-13 10:15 | NUR ---
NURSE NOTES: Dr. Valle saw the patient for about 45 minutes. Received orders from Dr. Valle. Made aware to Dr. Valle about hgb 6.8. Endorsed to charge nurse of downgrade to medical surgical care.
[2018-08-13] MEDS ORDERED: Iron Sucrose 100 MG in NS 55 ML IV SCH ×2 (11:00→11:30)
[2018-08-13] MEDS ORDERED: Heparin Sod 1000 units/ml 10ml IV PRN (11:30)
--- NOTE | 2018-08-13 11:38 | General Progress Note ---
Assessment/Plan Problem List: (1) HIV antibody positive ICD Codes: Z21 - Asymptomatic human immunodeficiency virus [HIV] infection status SNOMED: 839494795 (2) Hyperkalemia ICD Codes: E87.5 - Hyperkalemia SNOMED: 75819163 (3) Anemia ICD Codes: D64.9 - Anemia, unspecified SNOMED: 311263961 (4) Renal failure ICD Codes: N19 - Unspecified kidney failure SNOMED: 71914922 Status: stable Assessment/Plan: follow up labs HD transfuse Subjective ROS Limited/Unobtainable: No Constitutional: Reports: malaise, weakness HEENT: Reports: no symptoms Cardiovascular: Reports: no symptoms Allergies: Coded Allergies: No Known Allergies (Unverified , 08/10/18) All Systems: reviewed and negative except above Subjective feels better after HD. no cp/sob. decrease h/h noted Objective Last 24 Hour Vital Signs Date Time Temp Pulse Resp B/P (MAP) Pulse Ox O2 Delivery O2 Flow Rate FiO2 08/13/18 09:00 Room Air 08/13/18 07:54 98.8 92 17 117/86 (96) 97 08/13/18 07:45 84 08/13/18 05:00 98.8 79 20 148/83 (104) 95 08/13/18 04:00 85 08/13/18 03:54 85 08/13/18 00:00 83 08/13/18 00:00 97.7 75 20 154/63 (93) 96 08/12/18 23:46 83 08/12/18 21:00 Room Air 08/12/18 20:00 98.4 84 20 144/82 (102) 96 08/12/18 16:00 98.4 83 20 146/84 (104) 97 08/12/18 15:32 80 08/12/18 12:00 97.9 83 20 145/83 (103) 96 08/12/18 11:49 83 Intake and Output 08/12/18 08/13/18 18:59 06:59 Intake Total 375 ml 900 ml Output Total 550 ml 300 ml Balance -175 ml 600 ml Intake Oral 150 ml IV Total 225 ml 900 ml Output Urine Total 550 ml 300 ml # Bowel Movements 2 Laboratory Tests 08/12/18 11:50: Prothrombin Time 10.7, Prothromb Time International Ratio 1.0, Activated Partial Thromboplast Time 39H, Platelet Function Screen (ADP) [Pending], Platelet Function Scrn (Epinephrine [Pending] 08/13/18 06:15: White Blood Count 6.0, Red Blood Count 2.54L, Hemoglobin 6.8*L, Hematocrit 19.4L , Mean Corpuscular Volume 76L, Mean Corpuscular Hemoglobin 26.6L, Mean Corpuscular Hemoglobin Concent 34.9, Red Cell Distribution Width 13.0, Platelet Count 141L, Mean Platelet Volume 5.7L, Neutrophils (%) (Auto) , Lymphocytes (%) (Auto) , Monocytes (%) (Auto) , Eosinophils (%) (Auto) , Basophils (%) (Auto) , Differential Total Cells Counted 100, Neutrophils % (Manual) 66, Lymphocytes % ( Manual) 19L, Monocytes % (Manual) 10, Eosinophils % (Manual) 5H, Basophils % ( Manual) 0, Band Neutrophils 0, Platelet Estimate DecreasedL, Platelet Morphology Normal, Hypochromasia 1+, Microcytosis 1+, Sodium Level 138, Potassium Level 4.3, Chloride Level 104, Carbon Dioxide Level 26, Anion Gap 8, Blood Urea Nitrogen 60H, Creatinine 15.4H, Estimat Glomerular Filtration Rate 4.4, Glucose Level 93, Calcium Level 7.4L, Total Bilirubin 0.2, Aspartate Amino Transf (AST/SGOT) 30, Alanine Aminotransferase (ALT/SGPT) 14, Alkaline Phosphatase 83, Total Protein 7.2, Albumin 1.4L, Globulin 5.8, Albumin/Globulin Ratio 0.2L Height (Feet): 5 Height (Inches): 7.00 Weight (Pounds): 165 Objective General Appearance: WD/WN, alert Neck: supple Respiratory/Chest: lungs clear Abdomen: normal bowel sounds, non tender, soft, no organomegaly Edema: no edema noted Arm (L), no edema noted Arm (R), no edema noted Leg (L), no edema noted Leg (R), no edema noted Pedal (L), no edema noted Pedal (R), no edema noted 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
--- NOTE | 2018-08-13 11:45 | NUR ---
NURSE NOTES: Gave report to KEITH Galvez. patient is AAOx4. Belonging checklist completed. Mother, family member, states she will bring clothes home. Patient has a left hand IV access. Discussed with charge nurse of unit. Brought Venofer medication. Endorsed about dialysis for tomorrow and [facility] was called. Patient has Quetin cath in Right IJ that is dry and intact. Monitor was removed.
--- NOTE | 2018-08-13 11:57 | NUR ---
NURSE NOTES: Spoke with Jennifer, from [facility], for HD on 08/14/18.
[2018-08-13 12:00] VITALS: BP 124/89
--- NOTE | 2018-08-13 15:23 | NUR ---
CASE MANAGEMENT: REVIEW SI: RENAL FAILURE . HIV ANTIBODY POSITIVE . ANEMIA DIALYSIS TUNNEL CATH PLACEMENT 08/11 T 99.1 HR 92 RR 17 BP 148/83 SAT 95% ROOM AIR H/H 6.8/19.4 BUN 60 CR 15.4 IS: EPOETIN SQ MWF VENOFER IV X1 NS IVF @75ML/HR HD PRN PRBC 1 UNIT MED/SURG STATUS DCP: PATIENT IS FROM HOME
[2018-08-13 16:00] VITALS: BP 143/94
--- NOTE | 2018-08-13 19:18 | NUR ---
HAND-OFF: Report given to KEITH Parker.
--- NOTE | 2018-08-13 19:29 | NUR ---
NURSE NOTES: Received patient awake in bed, visitor at the b Addendum: 08/13/18 at 1931 by Edel Boyd RN visitor at the bedside. IV access asymptomatic, dressing dry and intact, on room air. Pt able to verbalize needs, no s/s of acute distress, no c/o pain at this time. Fall and safety precautions taken.
[2018-08-13] MEDS: Dyna-Hex 2% Top Sol 2oz TOPIC SCH (19:51)
[2018-08-13 20:00] VITALS: BP 134/98
[2018-08-14] VITALS: BP 145/98
[2018-08-14 04:00] VITALS: BP 144/100
--- NOTE | 2018-08-14 07:04 | NUR ---
HAND-OFF: Report given to KEITH Galvez.
--- NOTE | 2018-08-14 07:10 | NUR ---
NURSE NOTES: pt in bed with no sob nor in any form of distress noted. breathing regular and unlabored. denies any pain at this time. afebrile. denies any pain at this time. will continue to monitor
[2018-08-14 08:00] VITALS: BP 138/92
--- NOTE | 2018-08-14 08:16 | General Progress Note ---
Assessment/Plan Problem List: (1) HIV antibody positive ICD Codes: Z21 - Asymptomatic human immunodeficiency virus [HIV] infection status SNOMED: 952855830 (2) Hyperkalemia ICD Codes: E87.5 - Hyperkalemia SNOMED: 64422567 (3) Anemia ICD Codes: D64.9 - Anemia, unspecified SNOMED: 398670589 (4) Renal failure ICD Codes: N19 - Unspecified kidney failure SNOMED: 79425869 Status: stable Assessment/Plan: follow up pending labs HD per renal transfuse as needed titrate bp meds Subjective ROS Limited/Unobtainable: No Constitutional: Reports: malaise, weakness HEENT: Reports: no symptoms Cardiovascular: Reports: no symptoms Respiratory: Reports: no symptoms Gastrointestinal/Abdominal: Reports: no symptoms Genitourinary: Reports: no symptoms Neurologic/Psychiatric: Reports: no symptoms Endocrine: Reports: no symptoms Hematologic/Lymphatic: Reports: no symptoms Allergies: Coded Allergies: No Known Allergies (Unverified , 08/10/18) All Systems: reviewed and negative except above Subjective feels better after HD. no cp/sob. decrease h/h noted labs pending for today. Objective Last 24 Hour Vital Signs Date Time Temp Pulse Resp B/P (MAP) Pulse Ox O2 Delivery O2 Flow Rate FiO2 08/14/18 04:00 98.1 76 20 144/100 (115) 100 08/14/18 00:00 98.7 65 18 145/98 (114) 98 08/13/18 21:50 Room Air 08/13/18 20:00 98.6 77 18 134/98 (110) 96 08/13/18 16:00 99.0 66 17 143/94 (110) 98 08/13/18 13:47 99.1 08/13/18 12:00 99.1 92 17 124/89 (101) 98 08/13/18 09:00 Room Air Intake and Output 08/13/18 08/14/18 19:00 07:00 Intake Total 300 ml Balance 300 ml Intake Oral 300 ml # Voids 1 1 Laboratory Tests 08/14/18 07:10: White Blood Count [Pending], Red Blood Count [Pending], Hemoglobin [Pending], Hematocrit [Pending], Mean Corpuscular Volume [Pending], Mean Corpuscular Hemoglobin [Pending], Mean Corpuscular Hemoglobin Concent [Pending], Red Cell Distribution Width [Pending], Platelet Count [Pending], Mean Platelet Volume [ Pending], Neutrophils (%) (Auto) [Pending], Lymphocytes (%) (Auto) [Pending], Monocytes (%) (Auto) [Pending], Eosinophils (%) (Auto) [Pending], Basophils (%) (Auto) [Pending], Lymphocytes [Pending], Sodium Level [Pending], Potassium Level [Pending], Chloride Level [Pending], Carbon Dioxide Level [Pending], Blood Urea Nitrogen [Pending], Creatinine [Pending], Estimat Glomerular Filtration Rate [Pending], Glucose Level [Pending], Calcium Level [Pending], Percent CD3 Cells [Pending], Absolute CD3 Count [Pending], Percent CD4 Cells [ Pending], Absolute CD4 Count [Pending], T-Lymphocyte CD4/CD8 Ratio [Pending], Percent CD8 Cells [Pending], Absolute CD8 Count [Pending], HIV-1 RNA (PCR) log10 Value [Pending], HIV-1 RNA Ultraquantitative (PCR) [Pending] Height (Feet): 5 Height (Inches): 7.00 Weight (Pounds): 165 Objective General Appearance: WD/WN, alert Neck: supple Respiratory/Chest: lungs clear Abdomen: normal bowel sounds, non tender, soft, no organomegaly Edema: no edema noted Arm (L), no edema noted Arm (R), no edema noted Leg (L), no edema noted Leg (R), no edema noted Pedal (L), no edema noted Pedal (R), no edema noted 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
[2018-08-14 08:25] LABS: EOSINOPHILS % (AUTO) 8.6 % (0.0-3.0); HEMATOCRIT 23.6 % (42.0-52.0); HEMOGLOBIN 8.1 G/DL (14.2-18.0); LYMPHOCYTES % (AUTO) 18.9 % (20.0-45.0); MEAN CORPUSCULAR VOLUME 80 FL (80-99); NEUTROPHILS % (AUTO) 60.5 % (45.0-75.0); PLATELET COUNT 152 K/UL (150-450); RED BLOOD COUNT 2.96 M/UL (4.70-6.10); RED CELL DISTRIBUTION WIDTH 13.9 % (11.6-14.8); WHITE BLOOD COUNT 7.3 K/UL (4.8-10.8)
[2018-08-14 08:47] LABS: ANION GAP 13 mmol/L (5-15); BLOOD UREA NITROGEN 70 mg/dL (7-18); CALCIUM 7.7 MG/DL (8.5-10.1); CARBON DIOXIDE 21 MMOL/L (21-32); CHLORIDE 104 MMOL/L (98-107); CREATININE 17.2 MG/DL (0.55-1.30); POTASSIUM 4.7 MMOL/L (3.5-5.1); SODIUM 138 MMOL/L (136-145)
[2018-08-14] MEDS: Nephrovite tab (Rena-Vite) ORAL SCH (08:59)
[2018-08-14] MEDS ORDERED: Nephrovite tab (Rena-Vite) ORAL SCH (09:00)
--- NOTE | 2018-08-14 09:32 | NUR ---
NURSE NOTES: ob stool was collected and sent to the lab
--- NOTE | 2018-08-14 09:34 | NUR ---
CHARGE NURSE NOTE: Pt is scheduled for HD today. [facility] was called, message left (spoke with Leigh).
[2018-08-14] MEDS ORDERED: Heparin Sod 1000 units/ml 10ml IV ONE (09:45)
[2018-08-14 12:00] VITALS: BP 144/95
--- NOTE | 2018-08-14 12:00 | Nephrology Progress Note ---
Assessment/Plan Problem List: (1) Anemia in chronic kidney disease (2) Nephrotic syndrome (3) End-stage renal disease (4) HIV antibody positive (5) Hyperkalemia (6) Hypertensive nephrosclerosis Plan HD arranged, needs av access, epogen, long discuswion about hd and pd and transplant with him and mother, seen on HD stable, add losartan with hold parameters, dc levoquin urine culture <[id number] colonies, needs permcath, possible renal biopsy Subjective Constitutional: Reports: weakness HEENT: Reports: no symptoms Genitourinary: Reports: no symptoms Neurologic/Psychiatric: Reports: no symptoms Objective Objective Last 24 Hour Vital Signs Date Time Temp Pulse Resp B/P (MAP) Pulse Ox O2 Delivery O2 Flow Rate FiO2 08/14/18 09:00 Room Air 08/14/18 08:00 98.2 78 19 138/92 (107) 100 08/14/18 04:00 98.1 76 20 144/100 (115) 100 08/14/18 00:00 98.7 65 18 145/98 (114) 98 08/13/18 21:50 Room Air 08/13/18 20:00 98.6 77 18 134/98 (110) 96 08/13/18 16:00 99.0 66 17 143/94 (110) 98 08/13/18 13:47 99.1 08/13/18 12:00 99.1 92 17 124/89 (101) 98 Intake and Output 08/13/18 08/14/18 19:00 07:00 Intake Total 300 ml Balance 300 ml Intake Oral 300 ml # Voids 1 1 Laboratory Tests 08/14/18 07:10: White Blood Count 7.3, Red Blood Count 2.96L, Hemoglobin 8.1L, Hematocrit 23.6L , Mean Corpuscular Volume 80, Mean Corpuscular Hemoglobin 27.4, Mean Corpuscular Hemoglobin Concent 34.4, Red Cell Distribution Width 13.9, Platelet Count 152, Mean Platelet Volume 5.9L, Neutrophils (%) (Auto) 60.5, Lymphocytes ( %) (Auto) 18.9L, Monocytes (%) (Auto) 11.0H, Eosinophils (%) (Auto) 8.6H, Basophils (%) (Auto) 1.0, Lymphocytes [Pending], Sodium Level 138, Potassium Level 4.7, Chloride Level 104, Carbon Dioxide Level 21, Anion Gap 13, Blood Urea Nitrogen 70H, Creatinine 17.2H, Estimat Glomerular Filtration Rate 3.9, Glucose Level 91, Calcium Level 7.7L, Percent CD3 Cells [Pending], Absolute CD3 Count [Pending], Percent CD4 Cells [Pending], Absolute CD4 Count [Pending], T- Lymphocyte CD4/CD8 Ratio [Pending], Percent CD8 Cells [Pending], Absolute CD8 Count [Pending], HIV-1 RNA (PCR) log10 Value [Pending], HIV-1 RNA Ultraquantitative (PCR) [Pending] 08/14/18 09:20: Stool Occult Blood [Pending] Height (Feet): 5 Height (Inches): 7.00 Weight (Pounds): 165 General Appearance: no apparent distress, alert EENT: normal ENT inspection Neck: normal alignment Cardiovascular: normal rate, regular rhythm Respiratory/Chest: lungs clear Abdomen: non tender Extremities: other - no edema 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
--- NOTE | 2018-08-14 14:57 | Cardiology Report ---
APPROVED REPORT EKG Measurement Heart [id number] Sinus rhythm with sinus arrhythmia with occasional premature ventricular complexes Otherwise normal ECG
[2018-08-14 15:35] VITALS: BP 123/80
--- NOTE | 2018-08-14 19:31 | NUR ---
HAND-OFF: Report given to KEITH Maki.
--- NOTE | 2018-08-14 19:42 | NUR ---
NURSE NOTES: Received patient in bed, awake, alert,oriented, ambulatory with steady gate, no acute distress noted, VSS, afebrile, call light is within reach, bed is in low position, locked and alarm is on. Will continue to monitor for safety and comfort.
[2018-08-14 20:00] VITALS: BP 148/78
[2018-08-14] MEDS: Dyna-Hex 2% Top Sol 2oz TOPIC SCH (20:00)
[2018-08-14] MEDS ORDERED: Epoetin Alfa(ESRD on dialysis)10,000 unit/ml vial SUBQ SCH ×2 (21:00)
[2018-08-14] MEDS: Losartan 50mg tab ORAL SCH (21:29)
[2018-08-14] MEDS ORDERED: Albuterol/Ipratropium 3ml neb HHN PRN (23:45)
[2018-08-15] VITALS (11 sets, daily range): BP systolic 136–173; BP diastolic 83–116
[2018-08-15 01:48] LABS: APPEARANCE,URINE CLEAR; BILIRUBIN, URINE NEGATIVE (NEGATIVE); COLOR,URINE PALE YELLOW; GLUCOSE, URINE (UA) NEGATIVE (NEGATIVE); KETONES,URINE NEGATIVE (NEGATIVE); LEUKOCYTE ESTERASE ,URINE 2+ (NEGATIVE); NITRITE,URINE NEGATIVE (NEGATIVE); PH,URINE 8 (4.5-8.0); PROTEIN,URINE 4+ (NEGATIVE); UROBILINOGEN,URINE NORMAL MG/DL (0.0-1.0)
[2018-08-15 06:18] LABS: HEMATOCRIT 22.5 % (42.0-52.0); HEMOGLOBIN 7.7 G/DL (14.2-18.0); MEAN CORPUSCULAR VOLUME 79 FL (80-99); PLATELET COUNT 143 K/UL (150-450); RED BLOOD COUNT 2.83 M/UL (4.70-6.10); RED CELL DISTRIBUTION WIDTH 13.9 % (11.6-14.8); WHITE BLOOD COUNT 5.8 K/UL (4.8-10.8)
[2018-08-15 06:52] LABS: ANION GAP 9 mmol/L (5-15); BLOOD UREA NITROGEN 47 mg/dL (7-18); CALCIUM 7.1 MG/DL (8.5-10.1); CARBON DIOXIDE 27 MMOL/L (21-32); CHLORIDE 100 MMOL/L (98-107); CREATININE 12.7 MG/DL (0.55-1.30); POTASSIUM 4.1 MMOL/L (3.5-5.1); SODIUM 136 MMOL/L (136-145)
--- NOTE | 2018-08-15 06:55 | NUR ---
HAND-OFF: Report given to Ronald PARKER.
--- NOTE | 2018-08-15 07:44 | General Progress Note ---
Assessment/Plan Problem List: (1) HIV antibody positive ICD Codes: Z21 - Asymptomatic human immunodeficiency virus [HIV] infection status SNOMED: 580813746 (2) Hyperkalemia ICD Codes: E87.5 - Hyperkalemia SNOMED: 74850869 (3) Anemia ICD Codes: D64.9 - Anemia, unspecified SNOMED: 895623409 (4) Renal failure ICD Codes: N19 - Unspecified kidney failure SNOMED: 37261025 Status: stable Assessment/Plan: HD per renal transfuse as needed titrate bp meds perm cath placement Subjective ROS Limited/Unobtainable: No Constitutional: Reports: malaise, weakness HEENT: Reports: no symptoms Cardiovascular: Reports: no symptoms Respiratory: Reports: cough Gastrointestinal/Abdominal: Reports: no symptoms Genitourinary: Reports: no symptoms Neurologic/Psychiatric: Reports: no symptoms Endocrine: Reports: no symptoms Hematologic/Lymphatic: Reports: no symptoms Allergies: Coded Allergies: No Known Allergies (Unverified , 08/10/18) All Systems: reviewed and negative except above Subjective feels better after HD. no cp/sob. decrease h/h noted on epo/iron Objective Last 24 Hour Vital Signs Date Time Temp Pulse Resp B/P (MAP) Pulse Ox O2 Delivery O2 Flow Rate FiO2 08/15/18 05:00 98.4 63 20 153/96 (115) 08/15/18 00:00 98.9 64 20 136/83 (100) 08/14/18 21:29 161/90 08/14/18 21:00 Room Air 08/14/18 20:59 60 20 99 Nasal Cannula 2.0 28 08/14/18 20:59 99 Nasal Cannula 2.0 28 08/14/18 20:00 98.9 87 18 148/78 (101) 08/14/18 15:35 98.8 72 19 123/80 (94) 98 08/14/18 12:00 98.6 70 19 144/95 (111) 95 08/14/18 09:00 Room Air 08/14/18 08:00 98.2 78 19 138/92 (107) 100 Intake and Output 08/14/18 08/15/18 19:00 07:00 Intake Total 880 ml Balance 880 ml Intake Oral 880 ml # Voids 1 # Bowel Movements 2 Laboratory Tests 08/14/18 09:20: Stool Occult Blood Negative 08/15/18 00:50: Urine Color Pale yellow, Urine Appearance Clear, Urine pH 8, Urine Specific [place] 1.010, Urine Protein 4+H, Urine Glucose (UA) Negative, Urine Ketones Negative, Urine Blood 3+H, Urine Nitrite Negative, Urine Bilirubin Negative, Urine Urobilinogen Normal, Urine Leukocyte Esterase 2+H, Urine RBC 10-15H, Urine WBC 20-30H, Urine Squamous Epithelial Cells Occasional, Urine Bacteria Few 08/15/18 04:45: White Blood Count 5.8, Red Blood Count 2.83L, Hemoglobin 7.7L, Hematocrit 22.5L , Mean Corpuscular Volume 79L, Mean Corpuscular Hemoglobin 27.2, Mean Corpuscular Hemoglobin Concent 34.3, Red Cell Distribution Width 13.9, Platelet Count 143L, Mean Platelet Volume 6.2L, Neutrophils (%) (Auto) , Lymphocytes (%) (Auto) , Monocytes (%) (Auto) , Eosinophils (%) (Auto) , Basophils (%) (Auto) , Neutrophils % (Manual) [Pending], Lymphocytes % (Manual) [Pending], Platelet Estimate [Pending], Platelet Morphology [Pending], Prothrombin Time 10.1, Prothromb Time International Ratio 1.0, Activated Partial Thromboplast Time 36H , Sodium Level 136, Potassium Level 4.1, Chloride Level 100, Carbon Dioxide Level 27, Anion Gap 9, Blood Urea Nitrogen 47H, Creatinine 12.7H, Estimat Glomerular Filtration Rate 5.6, Glucose Level 105, Calcium Level 7.1L Height (Feet): 5 Height (Inches): 7.00 Weight (Pounds): 165 Objective General Appearance: WD/WN, alert Neck: supple Respiratory/Chest: lungs clear Abdomen: normal bowel sounds, non tender, soft, no organomegaly Edema: no edema noted Arm (L), no edema noted Arm (R), no edema noted Leg (L), no edema noted Leg (R), no edema noted Pedal (L), no edema noted Pedal (R), no edema noted 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
[2018-08-15] MEDS: Nephrovite tab (Rena-Vite) ORAL SCH (08:34)
[2018-08-15] MEDS: Losartan 50mg tab ORAL SCH ×2 (08:35→20:57)
--- NOTE | 2018-08-15 13:08 | NUR ---
NURSE NOTES: Patient off floor for procedure.
[2018-08-15] MEDS ORDERED: Lidocaine 1% Plain 30 ml INJ SCH (13:30)
--- NOTE | 2018-08-15 14:23 | NUR ---
RD ASSESSMENT & RECOMMENDATIONS SEE CARE ACTIVITY FOR COMPLETE ASSESSMENT DAILY ESTIMATED NEEDS: Needs based on ESRD on HD, HIV 69kg adj 30-35 kcals/kg [id number] total kcals 1.2-1.8 g protein/kg 83-104 g total protein Fluid per MD, on Hd NUTRITION DIAGNOSIS: Increased Kcal/ protein needs r/t ESRD on HD and infection as evidenced by pt adm w. renal failure, requiring HD (creat 29.6 on adm w/ critically elev K), pt w/ HIV (+), CD4 count 169. PO DIET RECOMMENDATIONS: RENAL DIET ADDITIONAL RECOMMENDATIONS: 1) Obtain a standing wt as able 2) Add HIGH PROTEIN SNACKS IN B/W MEALS 3) RD reviewed renal diet parameters w/ pt
--- NOTE | 2018-08-15 14:45 | NUR ---
NURSE NOTES: Patient back on the floor.
--- NOTE | 2018-08-15 14:52 | NUR ---
CASE MANAGEMENT:REVIEW 08/15/18 SI: ESRD (NEW). HIV 98.1 67 19 163/104 99% ON RA H/H-7.7/22.5 PLT-143 BUN+47 CR+12.7 IS: clonidine po q4hrs prn epoetin sq mwf cozaar po q12 nephrovite po qd renvela po tid : med/surg status 3 east
--- NOTE | 2018-08-15 14:56 | NUR ---
DISCHARGE PLANNING [facility] [employer] ESTIMATOR IS TRYING TO WORK WITH PATIENT TO HELP HIM OBTAIN FULL SCOPE [facility] PATIENT CANNOT BE DISCHARGED UNTIL HE HAS AN ACCEPTING OUTPATIENT DIALYSIS CENTER..WHICH REQUIRES INSURANCE Addendum: 08/16/18 at 1335 by REYMUNDO CROWE LVN LVN DR KENNED[facility]
--- NOTE | 2018-08-15 15:37 | Diagnostic Imaging Report ---
Indication: Intrinsic Renal Failure. Comparison: None Procedure: After indications, procedure, risks, potential complications and alternatives of the procedure were explained, written informed consent was obtained.The patient was brought to the ultrasound suite and placed upon the gurney. Ultrasound evaluation of the kidneys was performed with the patient in a prone position. A site was selected and the skin overlying the left kidney was prepped and draped in standard sterile fashion. 1% lidocaine was used anesthetize the skin and subcutaneous tissues. A small dermatotomy was made. Using ultrasound guidance, an 18-gauge automated core biopsy gun was used to obtain samples from the renal parenchyma. The biopsy was performed through a guiding introducer. Images were saved and archived. A total of 2 passes were made. Specimen was submitted to the pathologist for real-time evaluation. When the specimens were deemed adequate, the guiding introducer was removed. Patient tolerated the procedure without immediate complication and was transferred to same day surgery for observation in good condition. Impression: Successful ultrasound-guided core biopsy of the left kidney. Two passes made. Specimen deemed adequate for diagnosis by the pathologist. No immediate complications.
--- NOTE | 2018-08-15 19:29 | NUR ---
HAND-OFF: Report given to KEITH Maki.
--- NOTE | 2018-08-15 19:51 | NUR ---
NURSE NOTES: Received patient in bed, awake, alert, oriented, no acute distress noted, patient is able to make his needs known, VSS, afebrile, call light within reach, bed is in low position, locked and alarm is on. Will continue to monitor for safety and comfort.
--- NOTE | 2018-08-15 20:02 | Nephrology Progress Note ---
Assessment/Plan Problem List: (1) Anemia in chronic kidney disease (2) Nephrotic syndrome (3) End-stage renal disease (4) HIV antibody positive (5) Hyperkalemia (6) Hypertensive nephrosclerosis Plan HD arranged, needs av access, epogen, long discuswion about hd and pd and transplant with him and mother, , add losartan with hold parameters, dc levoquin urine culture <71327 colonies, needs permcath, renal biopsy done, no pain or hematuria Subjective Constitutional: Reports: weakness HEENT: Reports: no symptoms Neurologic/Psychiatric: Reports: no symptoms Objective Objective Last 24 Hour Vital Signs Date Time Temp Pulse Resp B/P (MAP) Pulse Ox O2 Delivery O2 Flow Rate FiO2 08/15/18 19:52 99 Nasal Cannula 2.0 28 08/15/18 19:52 71 18 97 Nasal Cannula 2.0 28 08/15/18 16:00 98.2 72 18 154/95 (114) 98 08/15/18 14:10 74 18 160/116 (131) 100 08/15/18 14:05 72 18 165/111 (129) 100 08/15/18 14:00 65 18 156/109 (125) 100 08/15/18 13:55 67 18 170/107 (128) 99 08/15/18 13:36 69 18 08/15/18 13:02 163/104 08/15/18 12:00 98.1 67 19 163/104 (123) 99 08/15/18 09:13 Room Air 08/15/18 08:55 99 Nasal Cannula 2.0 28 08/15/18 08:55 68 16 99 Nasal Cannula 2.0 08/15/18 08:35 158/104 08/15/18 08:00 98.1 66 18 158/104 (122) 97 08/15/18 05:00 98.4 63 20 153/96 (115) 08/15/18 00:00 98.9 64 20 136/83 (100) 08/14/18 21:29 161/90 08/14/18 21:00 Room Air 08/14/18 20:59 60 20 99 Nasal Cannula 2.0 28 08/14/18 20:59 99 Nasal Cannula 2.0 28 Intake and Output 08/14/18 08/15/18 18:59 06:59 Intake Total 880 ml Balance 880 ml Intake Oral 880 ml # Voids 1 # Bowel Movements 2 Laboratory Tests 08/15/18 00:50: Urine Color Pale yellow, Urine Appearance Clear, Urine pH 8, Urine Specific [place] 1.010, Urine Protein 4+H, Urine Glucose (UA) Negative, Urine Ketones Negative, Urine Blood 3+H, Urine Nitrite Negative, Urine Bilirubin Negative, Urine Urobilinogen Normal, Urine Leukocyte Esterase 2+H, Urine RBC 10-15H, Urine WBC 20-30H, Urine Squamous Epithelial Cells Occasional, Urine Bacteria Few 08/15/18 04:45: White Blood Count 5.8, Red Blood Count 2.83L, Hemoglobin 7.7L, Hematocrit 22.5L , Mean Corpuscular Volume 79L, Mean Corpuscular Hemoglobin 27.2, Mean Corpuscular Hemoglobin Concent 34.3, Red Cell Distribution Width 13.9, Platelet Count 143L, Mean Platelet Volume 6.2L, Neutrophils (%) (Auto) , Lymphocytes (%) (Auto) , Monocytes (%) (Auto) , Eosinophils (%) (Auto) , Basophils (%) (Auto) , Differential Total Cells Counted 100, Neutrophils % (Manual) 60, Lymphocytes % ( Manual) 21, Monocytes % (Manual) 9, Eosinophils % (Manual) 10H, Basophils % ( Manual) 0, Band Neutrophils 0, Platelet Estimate DecreasedL, Platelet Morphology Normal, Microcytosis 1+, Prothrombin Time 10.1, Prothromb Time International Ratio 1.0, Activated Partial Thromboplast Time 36H, Sodium Level 136, Potassium Level 4.1, Chloride Level 100, Carbon Dioxide Level 27, Anion Gap 9, Blood Urea Nitrogen 47H, Creatinine 12.7H, Estimat Glomerular Filtration Rate 5.6, Glucose Level 105, Calcium Level 7.1L 08/15/18 10:10: Platelet Function Screen (ADP) [Pending], Platelet Function Scrn (Epinephrine [ Pending] 08/15/18 11:20: Stool Occult Blood [Pending] Height (Feet): 5 Height (Inches): 7.00 Weight (Pounds): 165 General Appearance: no apparent distress, alert EENT: normal ENT inspection Neck: non-tender, normal alignment Cardiovascular: normal rate, regular rhythm Respiratory/Chest: lungs clear, normal breath sounds Abdomen: non tender, soft Extremities: other - no edema 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
[2018-08-15] MEDS: Dyna-Hex 2% Top Sol 2oz TOPIC SCH (20:56)
[2018-08-15] MEDS ORDERED: Iron Sucrose 100 MG in NS 55 ML IV ONE (22:00)
[2018-08-16] VITALS (13 sets, daily range): BP systolic 106–152; BP diastolic 66–96
[2018-08-16 06:43] LABS: HEMATOCRIT 22.1 % (42.0-52.0); HEMOGLOBIN 7.4 G/DL (14.2-18.0); MEAN CORPUSCULAR VOLUME 80 FL (80-99); PLATELET COUNT 156 K/UL (150-450); RED BLOOD COUNT 2.76 M/UL (4.70-6.10); WHITE BLOOD COUNT 6.9 K/UL (4.8-10.8)
[2018-08-16 07:05] LABS: ANION GAP 8 mmol/L (5-15); BLOOD UREA NITROGEN 58 mg/dL (7-18); CALCIUM 7.5 MG/DL (8.5-10.1); CARBON DIOXIDE 26 MMOL/L (21-32); CHLORIDE 101 MMOL/L (98-107); CREATININE 14.1 MG/DL (0.55-1.30); POTASSIUM 4.6 MMOL/L (3.5-5.1); SODIUM 135 MMOL/L (136-145)
--- NOTE | 2018-08-16 07:40 | NUR ---
NURSE NOTES: Received patient on bed, awake. Patient receiving dialysis. IV site intact and patent. Bed in low and locked position, call light in reach. Family at bedside. No signs of respiratory distress. Room board updated, will continue to monitor.
[2018-08-16 08:01] LABS: CHOLESTEROL 130 MG/DL (< 200); HDL CHOLESTEROL 39 MG/DL (40-60); TRIGLYCERIDES 133 MG/DL (30-150)
--- NOTE | 2018-08-16 08:01 | General Progress Note ---
Assessment/Plan Problem List: (1) HIV antibody positive ICD Codes: Z21 - Asymptomatic human immunodeficiency virus [HIV] infection status SNOMED: 995160634 (2) Hyperkalemia ICD Codes: E87.5 - Hyperkalemia SNOMED: 23831728 (3) Anemia ICD Codes: D64.9 - Anemia, unspecified SNOMED: 910433263 (4) Renal failure ICD Codes: N19 - Unspecified kidney failure SNOMED: 52940276 Status: stable Assessment/Plan: HD per renal transfuse as needed titrate bp meds perm cath placement avf Subjective ROS Limited/Unobtainable: No Constitutional: Reports: no symptoms HEENT: Reports: no symptoms Cardiovascular: Reports: no symptoms Respiratory: Reports: no symptoms Gastrointestinal/Abdominal: Reports: no symptoms Genitourinary: Reports: no symptoms Neurologic/Psychiatric: Reports: no symptoms Endocrine: Reports: no symptoms Hematologic/Lymphatic: Reports: no symptoms Allergies: Coded Allergies: No Known Allergies (Unverified , 08/10/18) All Systems: reviewed and negative except above Subjective on HD. no complaints. no fevers or chills. no cp. Objective Last 24 Hour Vital Signs Date Time Temp Pulse Resp B/P (MAP) Pulse Ox O2 Delivery O2 Flow Rate FiO2 08/16/18 04:00 98.7 69 18 152/96 (114) 08/16/18 00:00 98.2 87 18 151/67 (95) 08/15/18 21:00 Room Air 08/15/18 20:57 158/102 08/15/18 20:00 98.5 69 18 158/105 (122) 08/15/18 19:52 99 Nasal Cannula 2.0 08/15/18 19:52 71 18 97 Nasal Cannula 2.0 28 08/15/18 16:00 98.2 72 18 154/95 (114) 98 08/15/18 14:10 74 18 160/116 (131) 100 08/15/18 14:05 72 18 165/111 (129) 100 08/15/18 14:00 65 18 156/109 (125) 100 08/15/18 13:55 67 18 170/107 (128) 99 08/15/18 13:36 69 18 08/15/18 13:02 163/104 08/15/18 12:00 98.1 67 19 163/104 (123) 99 08/15/18 09:13 Room Air 08/15/18 08:55 99 Nasal Cannula 2.0 28 08/15/18 08:55 68 16 99 Nasal Cannula 2.0 28 08/15/18 08:35 158/104 08/15/18 08:00 98.1 66 18 158/104 (122) 97 Intake and Output 08/15/18 08/16/18 19:00 07:00 Intake Total 1280 ml Balance 1280 ml Intake Oral 1280 ml # Voids 3 Laboratory Tests 08/15/18 10:10: Platelet Function Screen (ADP) [Pending], Platelet Function Scrn (Epinephrine [ Pending] 08/15/18 11:20: Stool Occult Blood [Pending] 08/16/18 05:10: White Blood Count 6.9, Red Blood Count 2.76L, Hemoglobin 7.4L, Hematocrit 22.1L , Mean Corpuscular Volume 80, Mean Corpuscular Hemoglobin 27.0, Mean Corpuscular Hemoglobin Concent 33.7, Red Cell Distribution Width 14.0, Platelet Count 156, Mean Platelet Volume 6.1L, Neutrophils (%) (Auto) , Lymphocytes (%) ( Auto) , Monocytes (%) (Auto) , Eosinophils (%) (Auto) , Basophils (%) (Auto) , Neutrophils % (Manual) [Pending], Lymphocytes % (Manual) [Pending], Platelet Estimate [Pending], Platelet Morphology [Pending], Prothrombin Time 10.6, Prothromb Time International Ratio 1.0, Activated Partial Thromboplast Time 38H , Sodium Level 135L, Potassium Level 4.6, Chloride Level 101, Carbon Dioxide Level 26, Anion Gap 8, Blood Urea Nitrogen 58H, Creatinine 14.1H, Estimat Glomerular Filtration Rate 4.8, Glucose Level 83, Hemoglobin A1c [Pending], Calcium Level 7.5L, Triglycerides Level [Pending], Cholesterol Level [Pending], LDL Cholesterol [Pending], HDL Cholesterol [Pending], Cholesterol/HDL Ratio [ Pending] Height (Feet): 5 Height (Inches): 7.00 Weight (Pounds): 165 Objective General Appearance: WD/WN, alert Neck: supple Respiratory/Chest: lungs clear Abdomen: normal bowel sounds, non tender, soft, no organomegaly Edema: no edema noted Arm (L), no edema noted Arm (R), no edema noted Leg (L), no edema noted Leg (R), no edema noted Pedal (L), no edema noted Pedal (R), no edema noted 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
[2018-08-16] MEDS: Losartan 50mg tab ORAL SCH (09:23)
[2018-08-16] MEDS: Nephrovite tab (Rena-Vite) ORAL SCH (09:23)
--- NOTE | 2018-08-16 10:36 | NUR ---
Social Service Note SW met with patient who is alert, oriented and verbally responsive. Patient states he was diagnosed with HIV when he was 20. Patient states he was being seen in a clinic however did like the medication he was prescribed and hasn't taken medication for HIV or received follow up care in over 10 years. HIV follow up referrals discussed with patient. Referral placed in patient's chart and to be provided to patient upon discharge. Patient in agreement with continued dialysis. Patient and mother are working with [facility] in obtaining documentation required to complete medi-evelia application. Outpt dialysis will be arranged by CM, pending full scope medi-evelia. Patient will discharge home with his mother once appropriate. Will monitor and assist as needed.
[2018-08-16] MEDS ORDERED: LR 1000ml 1,000 ML IVLG SCH (12:02)
--- NOTE | 2018-08-16 12:03 | Anethesia Preoperative Eval ---
Anesthesia Pre-op PMH/ROS General Date of Evaluation: August 16, 2018 Time of Evaluation: 12:38 Anesthesiologist: Beverly ASA Score: ASA 3 Mallampati Score Class I : Soft palate, uvula, fauces, pillars visible Class II: Soft palate, uvula, fauces visible Class III: Soft palate, base of uvula visible Class IV: Only hard plate visible Mallampati Classification: Class II Surgeon: Radha Diagnosis: ESRD Surgical Procedure: Replace Dialysis Catheter Anesthesia History: none Family History: no anesthesia problems Allergies: Coded Allergies: No Known Allergies (Unverified , 08/10/18) Medications: see eMAR Patient NPO?: Yes Past Medical History Cardiovascular: Reports: HTN Gastrointestinal/Genitourinary: Reports: ESRD - Cr 30 Hematology/Immune: Reports: anemia, other - HIV Anesthesia Pre-op Phys. Exam Physician Exam Last Vital Signs Date Time Temp Pulse Resp B/P (MAP) Pulse Ox O2 Delivery O2 Flow Rate FiO2 08/16/18 09:23 132/66 08/16/18 09:01 94 Room Air 21 08/16/18 09:01 77 18 08/16/18 08:00 98.4 08/15/18 19:52 2.0 Constitutional: NAD Neurologic: CN 2-12 intact Cardiovascular: RRR Respiratory: CTA Gastrointestinal: S/NT/ND Airway Exam Mallampati Score: Class II MO: full ROM: full Teeth: intact Anesthesia Pre-op A/P Labs Hematology Test 08/16/18 05:10 White Blood Count 6.9 K/UL (4.8-10.8) Red Blood Count 2.76 M/UL (4.70-6.10) L Hemoglobin 7.4 G/DL (14.2-18.0) L Hematocrit 22.1 % (42.0-52.0) L Mean Corpuscular Volume 80 FL (80-99) Mean Corpuscular Hemoglobin 27.0 PG (27.0-31.0) Mean Corpuscular Hemoglobin Concent 33.7 G/DL (32.0-36.0) Red Cell Distribution Width 14.0 % (11.6-14.8) Platelet Count 156 K/UL (150-450) Mean Platelet Volume 6.1 FL (6.5-10.1) L Neutrophils (%) (Auto) % (45.0-75.0) Lymphocytes (%) (Auto) % (20.0-45.0) Monocytes (%) (Auto) % (1.0-10.0) Eosinophils (%) (Auto) % (0.0-3.0) Basophils (%) (Auto) % (0.0-2.0) Differential Total Cells Counted 100 Neutrophils % (Manual) 69 % (45-75) Lymphocytes % (Manual) 15 % (20-45) L Monocytes % (Manual) 6 % (1-10) Eosinophils % (Manual) 9 % (0-3) H Basophils % (Manual) 1 % (0-2) Band Neutrophils 0 % (0-8) Platelet Estimate Adequate Platelet Morphology Normal Hypochromasia 3+ Anisocytosis 1+ Spherocytes 2+ Coagulation Test 08/16/18 05:10 08/16/18 11:05 Prothrombin Time 10.6 SEC (9.30-11.50) Prothromb Time International Ratio 1.0 (0.9-1.1) Activated Partial Thromboplast Time 38 SEC (23-33) H Platelet Function Screen (ADP) Pending Platelet Function Scrn (Epinephrine Pending Chemistry Test 08/16/18 05:10 Sodium Level 135 MMOL/L (136-145) L Potassium Level 4.6 MMOL/L (3.5-5.1) Chloride Level 101 MMOL/L (98-107) Carbon Dioxide Level 26 MMOL/L (21-32) Anion Gap 8 mmol/L (5-15) Blood Urea Nitrogen 58 mg/dL (7-18) H Creatinine 14.1 MG/DL (0.55-1.30) H Estimat Glomerular Filtration Rate 4.8 mL/min (>60) Glucose Level 83 MG/DL (74-106) Hemoglobin A1c 5.9 % (4.3-6.0) Calcium Level 7.5 MG/DL (8.5-10.1) L Triglycerides Level 133 MG/DL (30-150) Cholesterol Level 130 MG/DL (< 200) LDL Cholesterol 67 mg/dL (<100) HDL Cholesterol 39 MG/DL (40-60) L Cholesterol/HDL Ratio 3.3 (3.3-4.4) Risk Assessment & Plan Assessment: ASA 3 Plan: GA, SED Status Change Before Surgery: No Pre-Antibiotics Dru Grams Ancef IV Given Within 1 Hr of Incision: Yes Time Given: 12:56 Yunier Paul MD August 16, 2018 12:03
--- NOTE | 2018-08-16 12:05 | NUR ---
NURSE NOTES: Patient is off floor for procedure.
[2018-08-16] MEDS ORDERED: HYDROcodone/Acetamin 5/325 tab ORAL PRN (12:15)
[2018-08-16] MEDS ORDERED: oxyCODONE HCL/Acetaminophen 5/325mg ORAL PRN (12:15)
[2018-08-16] MEDS ORDERED: Hydromorphone 0.5mg/0.5ml inj IVP PRN (12:15)
[2018-08-16] MEDS ORDERED: LORazepam Inj 2mg/ml 1ml IV PRN (12:15)
[2018-08-16] MEDS ORDERED: DiphenhydrAMINE 50mg/ml Inj IVP PRN (12:15)
[2018-08-16] MEDS ORDERED: Meperidine 50mg/ml Inj(FOR RIGORS ONLY) IVP PRN (12:15)
[2018-08-16] MEDS ORDERED: Atropine Sulfate 0.4mg/ml inj IVP PRN (12:15)
[2018-08-16] MEDS ORDERED: HYDROcodone/Acetamin 7.5/325 tab ORAL PRN (12:15)
[2018-08-16] MEDS ORDERED: Ketorolac 30mg Inj IV PRN ×2 (12:15)
[2018-08-16] MEDS ORDERED: Metoclopramide 10mg/2ml Inj IVP PRN (12:15)
[2018-08-16] MEDS ORDERED: Midazolam 2mg/2ml Inj IVP PRN (12:15)
[2018-08-16] MEDS ORDERED: fentaNYL 100 mcg/2 mL IV PRN (12:15)
[2018-08-16] MEDS ORDERED: Dexamethasone 4mg/ml vial ONE (12:20)
[2018-08-16] MEDS ORDERED: Propofol 200mg/20ml IV ONE (12:20)
[2018-08-16] MEDS ORDERED: Sodium Chloride 10ml vial INJ ONE (12:20)
[2018-08-16] MEDS ORDERED: Lidocaine 1% MPF 10mg/ml 5ml ONE (12:20)
[2018-08-16] MEDS ORDERED: fentaNYL 100 mcg/2 mL IV ONE ×2 (12:21→13:30)
[2018-08-16] MEDS ORDERED: Sterile Water Irrig 1000ml IRRIG ONE (12:30)
[2018-08-16] MEDS ORDERED: NS Irrig 1000ml ONE (12:30)
[2018-08-16] MEDS ORDERED: LR 1000ml ONE (12:30)
[2018-08-16] MEDS ORDERED: Heparin 1000 units/ml 1ml Vial ONE (12:31)
[2018-08-16] MEDS ORDERED: Bacitracin 50000 Units Vial ONE (12:31)
[2018-08-16] MEDS ORDERED: Bupivacaine w/Epi 0.5% 30ml Vial INJ ONE (12:31)
[2018-08-16] MEDS ORDERED: Bacitracin Oint 15gm Tube TOPIC ONE (12:31)
[2018-08-16] MEDS ORDERED: Heparin 5000 units/ml inj ONE (12:31)
[2018-08-16] MEDS ORDERED: Lidocaine 1% 10mg/ml/Epi 0.005mg/ml 30ml vial INJ ONE (12:31)
--- NOTE | 2018-08-16 12:40 | Pre-Procedure Note/Attestation ---
Pre-Procedure Note/Attestation Complete Prior to Procedure Planned Procedure: not applicable Procedure Narrative: Replacement of dialysis catheter Indications for Procedure Pre-Operative Diagnosis: ESRD Attestation I attest that I discussed the nature of the procedure; its benefits; risks and complications; and alternatives (and the risks and benefits of such alternatives ), prior to the procedure, with the patient (or the patient's legal sales representative rural [place]). I attest that, if there was a reasonable possibility of needing a blood transfusion, the patient (or the patient's legal sales representative rural [place]) was given the [facility] standardized written summary, pursuant to the Mack Steven Blood Safety Act ([place] Health and Safety Code # 1645, as amended). I attest that I re-evaluated the patient just prior to the surgery and that there has been no change in the patient's H&P, except as documented below: Fermin Garcia MD August 16, 2018 12:40
[2018-08-16] MEDS ORDERED: Lidocaine 1% Plain 30 ml INJ ONE (12:42)
[2018-08-16] MEDS ORDERED: Iothalamate Meglumine 60% 30ML INJ ONE (13:03)
[2018-08-16] MEDS ORDERED: Heparin 1000 units/ml 1ml Vial INJ ONE (13:06)
[2018-08-16] MEDS ORDERED: NS Irrig 1000ml IRRIG ONE (13:06)
--- NOTE | 2018-08-16 13:15 | Immediate Post-Op Evaluation ---
Immediate Post-Op Evalulation Immediate Post-Op Evalulation Procedure: Replace Dialysis Catheter Date of Evaluation: August 16, 2018 Time of Evaluation: 14:14 IV Fluids: 500 LR Blood Products: 0 Estimated Blood Loss: 25 Urinary Output: 0 Blood Pressure Systolic: 119 Pulse Rate: 72 Respiratory Rate: 16 O2 Sat by Pulse Oximetry: 100 Temperature (Fahrenheit): 97.5 Pain Score (1-10): 2 Nausea: No Vomiting: No Complications 0 Patient Status: patent, none Hydration Status: adequate Dru Grams Ancef IV Given Within 1 Hr of Incision: Yes Time Given: 12:56 Yunier Paul MD August 16, 2018 13:15
--- NOTE | 2018-08-16 13:17 | Nephrology Progress Note ---
Assessment/Plan Problem List: (1) Anemia in chronic kidney disease (2) Nephrotic syndrome (3) End-stage renal disease (4) HIV antibody positive (5) Hyperkalemia (6) Hypertensive nephrosclerosis Plan HD arranged, needs av access, epogen, long discuswion about hd and pd and transplant with him and mother, , add losartan with hold parameters, dc levoquin urine culture <27721 colonies, needs permcath, doing today renal biopsy done, no pain or hematuria, HD 08/16 stable, ok for dc Subjective Constitutional: Reports: no symptoms HEENT: Reports: no symptoms Genitourinary: Reports: no symptoms Neurologic/Psychiatric: Reports: no symptoms Objective Objective Last 24 Hour Vital Signs Date Time Temp Pulse Resp B/P (MAP) Pulse Ox O2 Delivery O2 Flow Rate FiO2 08/16/18 12:00 98.3 73 21 132/91 (105) 97 08/16/18 09:23 132/66 08/16/18 09:01 94 Room Air 21 08/16/18 09:01 77 18 94 Room Air 21 08/16/18 09:00 Room Air 08/16/18 08:00 98.4 71 19 132/66 (88) 96 08/16/18 04:00 98.7 69 18 152/96 (114) 08/16/18 00:00 98.2 87 18 151/67 (95) 08/15/18 21:00 Room Air 08/15/18 20:57 158/102 08/15/18 20:00 98.5 69 18 158/105 (122) 08/15/18 19:52 99 Nasal Cannula 2.0 28 08/15/18 19:52 71 18 97 Nasal Cannula 2.0 28 08/15/18 16:00 98.2 72 18 154/95 (114) 98 08/15/18 14:10 74 18 160/116 (131) 100 08/15/18 14:05 72 18 165/111 (129) 100 08/15/18 14:00 65 18 156/109 (125) 100 08/15/18 13:55 67 18 170/107 (128) 99 08/15/18 13:36 69 18 Intake and Output 08/15/18 08/16/18 19:00 07:00 Intake Total 1280 ml Balance 1280 ml Intake Oral 1280 ml # Voids 3 Laboratory Tests 5/29/19 05:10: White Blood Count 6.9, Red Blood Count 2.76L, Hemoglobin 7.4L, Hematocrit 22.1L , Mean Corpuscular Volume 80, Mean Corpuscular Hemoglobin 27.0, Mean Corpuscular Hemoglobin Concent 33.7, Red Cell Distribution Width 14.0, Platelet Count 156, Mean Platelet Volume 6.1L, Neutrophils (%) (Auto) , Lymphocytes (%) ( Auto) , Monocytes (%) (Auto) , Eosinophils (%) (Auto) , Basophils (%) (Auto) , Differential Total Cells Counted 100, Neutrophils % (Manual) 69, Lymphocytes % ( Manual) 15L, Monocytes % (Manual) 6, Eosinophils % (Manual) 9H, Basophils % ( Manual) 1, Band Neutrophils 0, Platelet Estimate Adequate, Platelet Morphology Normal, Hypochromasia 3+, Anisocytosis 1+, Spherocytes 2+, Prothrombin Time 10.6 , Prothromb Time International Ratio 1.0, Activated Partial Thromboplast Time 38H, Sodium Level 135L, Potassium Level 4.6, Chloride Level 101, Carbon Dioxide Level 26, Anion Gap 8, Blood Urea Nitrogen 58H, Creatinine 14.1H, Estimat Glomerular Filtration Rate 4.8, Glucose Level 83, Hemoglobin A1c 5.9, Calcium Level 7.5L, Triglycerides Level 133, Cholesterol Level 130, LDL Cholesterol 67, HDL Cholesterol 39L, Cholesterol/HDL Ratio 3.3 08/16/18 11:05: Platelet Function Screen (ADP) [Pending], Platelet Function Scrn (Epinephrine [ Pending] Height (Feet): 5 Height (Inches): 7.00 Weight (Pounds): 165 General Appearance: no apparent distress, alert EENT: normal ENT inspection Neck: normal alignment Cardiovascular: normal rate, regular rhythm Respiratory/Chest: lungs clear, normal breath sounds Abdomen: non tender, soft, no organomegaly 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
[2018-08-16] MEDS ORDERED: RENVELA800 MG ORAL (13:18)
[2018-08-16] MEDS ORDERED: COZAAR50 MG ORAL (13:18)
[2018-08-16] MEDS ORDERED: NEPHROVITE1 TAB ORAL (13:18)
--- NOTE | 2018-08-16 13:18 | NUR ---
CASE MANAGEMENT:REVIEW 08/16/18 SI: ESRD. HIV 98.3 73 21 132/91 97% ON RA H/H-7.4/22.1 BUN+58 CR+14.1 IS: CLONIDINE PO Q4HRS PRN NEPHROVITE PO QD RENVELA PO TID : MED/SURG STATUS 4 EAST PLAN: REPLACE DIALYSIS CATHETER
--- NOTE | 2018-08-16 14:11 | Brief Operative Note ---
Immediate Post Operative Note Operative Note Pre-op Diagnosis: ESRD Procedure: placement of a PermCath via right IJ and removal of old cath. Post-op Diagnosis: same as pre-op Findings: consistent w/pre-op dx studies Surgeon: Kostas Garcia Anesthesiologist: Domonique Paul Anesthesia: general Specimen: none Complications: none Condition: stable Fluids: see anesth. record Estimated Blood Loss: minimal Drains: none Implant(s) used?: Yes - Fermin Bautista MD August 16, 2018 14:11
--- NOTE | 2018-08-16 15:23 | Diagnostic Imaging Report ---
INDICATION: Pain, intraoperative TECHNIQUE: Intraoperative imaging Fluoroscopy time: 67.8 seconds Total dose: 0.18875 mGym2 Total number of images: 2 COMPARISON: None FINDINGS: Intraoperative images document exchange of temporary dialysis catheter for a tunneled dialysis catheter IMPRESSION: Intraoperative imaging, as described
--- NOTE | 2018-08-16 15:50 | Diagnostic Imaging Report ---
Indication: Post line placement Technique: One view of the chest Comparison: 08/10/2018 Findings: Inspiration is suboptimal. Interim placement right jugular tunneled dialysis catheter, tip projecting at level of mid right atrium. The heart is mildly enlarged. The left hemidiaphragm is slightly obscured, small pleural effusion possible, also evident previously. There is no pneumothorax Impression: Interim right jugular tunneled dialysis catheter placement, no radiographically evident complication Small left pleural effusion
--- NOTE | 2018-08-16 18:05 | NUR ---
NURSE NOTES: Patient discharged. Dressing is dry and intact. IV removed and site covered. Personal belongings inventoried and sent with patient. Patient needs met and patient kept comfortable at all times. Patient departed in personal vehicle.
--- NOTE | 2018-08-16 18:45 | Operative Note - Dictated ---
DATE OF OPERATION: 08/16/2018 PREOPERATIVE DIAGNOSES: 1. End-stage renal disease. 2. Need for long-term dialysis access. POSTOPERATIVE DIAGNOSES: 1. End-stage renal disease. 2. Need for long-term dialysis access as well as findings below. PROCEDURES: 1. Placement of a tunneled dialysis catheter (PermCath) via right internal jugular vein. 2. Removal of the old dialysis catheter. 3. Intraoperative ultrasound. 4. Intraoperative fluoroscopy. 5. Supervision and interpretation of x-rays. SURGEON: Fermin Griffin M.D. ANESTHESIA: General via LMA. ANESTHESIOLOGIST: Yunier Paul M.D. INDICATION: The patient was started with dialysis using a temporary catheter and a long-term access is requested per the high school chemistry teacher. INTRAOPERATIVE FINDINGS: The right internal jugular vein was patent and the catheter placed as described below with the tip near the atriocaval junction and good venous blood flow from both ports. He remained hemodynamically stable throughout the procedure and chest x-ray was ordered postoperatively to rule out hemopneumothorax. PROCEDURE IN DETAIL: With the patient in Trendelenburg position and after induction of anesthesia, the neck and upper chest areas were prepped and draped in usual sterile fashion. Skin was infiltrated with local anesthetic and under ultrasound and fluoroscopic guidance through a posterior approach to the right sternocleidomastoid muscle with a micropuncture needle using a single wall puncture modified Seldinger, a wire was advanced and followed into the vena cava under fluoroscopy and needle removed. Two stab incisions were made, one in the puncture site in the neck and the other in the right anterolateral chest and the 2 connected with the subcutaneous tunnel through which a DuraMax catheter was brought out of the upper incision where after serial dilation of the tract, an introducer sheath and dilator were placed coaxially over the wire and followed into the vena cava under fluoroscopy. The wire and dilator removed and the catheter placed through the sheath and the sheath peeled away and removed leaving the catheter in good position and no kinks noted along its length. Good venous blood return was obtained from both ports of the catheter and it was then flushed with heparinized saline and capped. The catheter was secured to the skin with nylon sutures and after hemostasis was assured, the neck incision was irrigated with antibiotic solution and closed with a single suture of 4-0 Vicryl in a vertical mattress subcuticular fashion for skin closure. Skin was cleaned and dried and Betadine applied to both incisions and sterile dressings were placed. The existing catheter was then removed after the sutures of the skin were cut off and the catheter pulled out without difficulty. Manual compression was maintained for hemostasis. Pressure dressing was applied. The patient tolerated the procedure well and was transferred out of the room in stable condition. ESTIMATED BLOOD LOSS: Minimal. COMPLICATIONS: None. DRAINS: None. TOTAL FLUOROSCOPY TIME: Approximately 1 minute. SPECIMEN: None. The procedure was performed using maximal sterile barrier technique. Fermin Griffin M.D. DR: NIMO JOB#: [id number] CC: Natalie Alaniz M.D. ; FAX#: [phone] FERMIN GRIFFIN M.D.; FAX#: [phone]
[2018-08-16] MEDS ORDERED: EPOETIN ALFA 4000 UNIT/ML SUBQ SCH (21:00)
[2018-08-16] MEDS ORDERED: Epoetin Alfa(ESRD on dialysis)3000 units/ml vial SUBQ SCH (21:00)
--- NOTE | 2018-08-17 08:33 | 48 Hour Post Anesthesia Eval ---
Post Anesthesia Evaluation Procedure: Replace Dialysis Catheter Date of Evaluation: August 16, 2018 Airway: patent Nausea: No Vomiting: No Pain Intensity: 2 Hydration Status: adequate Cardiopulmonary Status: at baseline Mental Status/LOC: patient returned to baseline Post-Anesthesia Complications: 0 Follow-up care needed: N/A - further caree as peer primary Marcella Rodriguez MD August 17, 2018 08:33
--- NOTE | 2018-08-17 09:01 | Discharge Summary ---
Discharge Summary Discharge Summary _ DATE OF ADMISSION: 08/10/2018 DATE OF DISCHARGE: 08/16/2018 DISCHARGED BY: Dr. Slater REASON FOR ADMISSION: 32 years old male with no past medical history , presented to emergency department with feeling jittery. Patient denied chest pain, shortness of breath ,palpitations. Patient denied diarrhea. Patient denied difficulty in voiding. He reported regular fluid intake. No prior history of kidney problems. No family history of kidney problems. Upon evaluation vital signs were stable. Laboratory work-up revealed hyperkalemia with potassium 6.4 , creatinine 29.6, BUN 141, bicarb 14 . Patient also noted to be anemic with hemoglobin 6.4, hematocrit 18. Urinalysis revealed few bacteria +4 protein , +1 glucose , +3 blood , pyuria and few bacteria. Urine toxicology screen was negative. Chest x-ray revealed mild pulmonary vascular congestion. Left pleural effusion. CT of the abdomen and pelvis revealed patchy ground glass opacities within the lung bases , nonspecific in nature. Trace bilateral pleural effusion. Questioning of thickening of left hemicolon. Prominent liver. Normal appendix. Contracted gallbladder. No evidence of renal stones or urinary tract stones or hydronephrosis. EKG reveals sinus rhythm , no acute ischemic changes. Patient started on IV hydration and admitted for renal failure. CONSULTANTS: forestry tree pruner Dr. Valle vascular surgery [facility] COURSE: Patient started on the IV hydration. Renal parameters and electrolytes were closely monitored. Hyperkalemia was treated. Systems Integration Advisor closely followed. Patient was transfused with total of 2 units of packed red blood cells. HIV test was reactive for HIV 1 antibody. Hepatitis panel revealed no evidence of hepatitis B or C, but showed evidence of prior hepatitis A infection. ELIAS screen was negative. ANCA screen was negative. T-cell subsets revealed CD4 169. Renal ultrasound demonstrated markedly echogenic kidneys consistent with medical renal disease. No hydronephrosis. Systems Integration Advisor recommended to start hemodialysis. Patient initially undergone insertion of non-tunneled catheter on 08/11 by interventional radiology via right jugular vein. At the same day patient also undergone ultrasound-guided core biopsy of the left kidney. Results of the biopsy still pending at the time of this dictation. Hemodialysis was provided as per forestry tree pruner with close monitoring of volumes. Patient will require further hemodialysis. Subsequently vascular surgeon was contacted, and patient undergone on 08/16 placement of tunneled dialysis catheter/Perma-catheter via right internal jugular vein and removal of old temporary hemodialysis catheter. Chest x-ray post procedure revealed no radiographic evidence of complication. Hemoglobin and hematocrit were closely monitored with goal to keep hemoglobin above 7. Stool for occult blood x2 were negative. Anemia was likely related to chronic kidney disease. Prior to discharge hemoglobin 7.4, hematocrit 22.1. Urine culture initially revealed gram-negative rods with colony count less than 10 , repeated urine culture was negative. Initially started Levaquin was discontinued. Losartan was added to improve blood pressure control with holding parameters. Echocardiogram revealed mildly depressed systolic function and wall motion with estimated left ventricular ejection fraction of 50%. No evidence of left ventricular hypertrophy. No evidence of pericardial effusion. Right ventricular systolic pressure of 46 consistent with moderate pulmonary hypertension. Supportive care provided. Patient denied any pain, no hematuria. Prior to discharge. BUN 58, creatinine 14.1. fly worker met with patient. According to patient, he was diagnosed with HIV when he was 20. Patient stated that he had been seen in clinic at that time, however did not like the medication he was prescribed. Subsequently he had not been taking medication for HIV or received follow up care for over 10 years. HIV follow up referrals were discussed with patient social insurance analyst. Referral was placed in patient's chart and provided to patient upon discharge. Hemodialysis arranged as outpatient. Long discussion between forestry tree pruner patient and his mother was held in terms of peritoneal versus hemodialysis as well as transplant. FINAL DIAGNOSES: End-stage renal disease , requiring start of hemodialysis Anemia of chronic kidney disease Nephrotic syndrome Hyperkalemia Hypertensive nephrosclerosis Status post placement of Perma-Cath 08/16 Status post ultrasound-guided core biopsy of the left kidney HIV antibody positive DISCHARGE MEDICATIONS: See Medication Reconciliation list. DISCHARGE INSTRUCTIONS: Patient was discharged home , follow-up with outpatient hemodialysis as arranged. Follow up with primary care provider in one week. Patient will need close follow up care as outpatient . Follow-up with HIV clinic/referral provided. I have been assigned to dictate discharge summary for this account. I was not involved in the patient's management. Leia Galloway NP August 17, 2018 09:01
--- NOTE | 2018-08-17 19:41 | Diagnostic Imaging Report ---
APPROVED REPORT CPT Code: G0365 Present Symptoms Comments: Pre-Op for possible AVF Vein Measurements(cm) Cephalic Basilic Right LeftRight Left 0.37Upper Arm0.44Mid Upper Arm0.45 0.34Mid Upper Arm0.30Antecubital Fossa0.34 0.20Upper Forearm0.21 0.56Antecubital FossaWrist 0.21Upper Forearm VEIN MAPPING: The right and left basilic and right cephalic veins were imaged and measured to evaluate as a potential graft for dialysis access. The left cephalic vein is occluded. BILATERAL UPPER EXTREMIY VENOUS SYSTEM: The deep venous system is patent without evidence of thrombus. BILATERAL UPPER EXTREMITY: Imaging of the subclavian, axillary, brachial, radial and ulnar arteries is within normal limits. There is no evidence of stenosis or occlusions within these segments. The Doppler waveforms of both upper extremities are multiphasic, consistent with normal inflow to both upper extremities.
== END 2018-08-16 18:10 | disposition home or self-care (01) | DRG 470 ==
LOC: EMR 21:24 → 2E 22:32 → EDBEDREQ 22:48 → 2E 08-11 14:22 → 4E 08-13 11:22
PROC: 30233N1 Transfusion of Nonautologous Red Blood Cells into Peripheral Vein, Percutaneous Approach (ICD-10-PCS; 2018-08-11)
PROC: 5A1D70Z Performance of Urinary Filtration, Intermittent, Less than 6 Hours Per Day (ICD-10-PCS; 2018-08-11)
PROC: 0TB13ZX Excision of Left Kidney, Percutaneous Approach, Diagnostic (ICD-10-PCS; 2018-08-15)
PROC: 05HM33Z Insertion of Infusion Device into Right Internal Jugular Vein, Percutaneous Approach (ICD-10-PCS; 2018-08-16)
PROC: 05PYX3Z Removal of Infusion Device from Upper Vein, External Approach (ICD-10-PCS; 2018-08-16)
PROC: 0JH63XZ Insertion of Tunneled Vascular Access Device into Chest Subcutaneous Tissue and Fascia, Percutaneous Approach (ICD-10-PCS; principal; 2018-08-16 12:30)
DX: I12.0 Hypertensive chronic kidney disease with stage 5 chronic kidney disease or end stage renal disease (principal); N17.9 Acute kidney failure, unspecified; E87.5 Hyperkalemia; N04.9 Nephrotic syndrome with unspecified morphologic changes; N18.6 End stage renal disease; D63.1 Anemia in chronic kidney disease
CPT/HCPCS: 36415; 36569; 36600; 71045; 74176; 76000; 76770; 76937; 76942; 80048; 80053; 80061; 80307; 81001; 81003; 82270; 82550; 82553; 82728; 82784; 82803; 83036; 83540; 83550; 84550; 85007; 85025; 85044; 85576; 85610; 85651; 85730; 86021; 86039; 86160; 86162; 86334; 86360; 86689; 86703; 86706; 86708; 86803; 86850; 86900; 86901; 86920; 87086; 87340; 87517; 87536; 93005; 93306; 93922; 94664; 96360; 99285; J2405

== ENCOUNTER 2018-11-17 04:28 | Emergency (ER) | payer MEDICAID ==
[~2018-11-17] VITALS: Ht 170.2 cm; Wt 79.4 kg
[~2018-11-17 04:28] MED LIST: COZAAR50 MG ORAL; NEPHROVITE1 TAB ORAL; NKM; RENVELA800 MG ORAL
--- NOTE | 2018-11-17 04:41 | NUR ---
ED Nurse Note: Pt walked in c/o left eye discomfort and redness, pt reports he has been having it for past 8 days and used some antibiotic eyedrop but no improvement. noted pt redness in left eye, no discharge at this time, will cont monitor.
--- NOTE | 2018-11-17 04:54 | Emergency Room Report ---
History of Present Illness General Chief Complaint: Eye Problems Source: Patient Present Illness HPI This is a 33-year-old male with a history of renal failure. He presents with left eye redness. Onset for about 10 days now. He is on antibiotic drops prescribed by his father. Patient said is not getting better and actually getting worse. More injected. No blurry vision. There felt like there is a film over part of his eye. He denies any fever chills but denies any nausea vomiting. Does not wear contacts. No trauma. Allergies: Coded Allergies: No Known Allergies (Unverified , 08/10/18) Patient History Past Medical History: see triage record, old chart reviewed, renal disease, dialysis Past Surgical History: other Pertinent Family History: none Social History: Denies: smoking Immunizations: other Reviewed Nursing Documentation: PMH: Agreed; PSxH: Agreed Nursing Documentation-PMH Past Medical History: No History, Except For Hx Cardiac Problems: No - HIV+ Hx Dialysis: Yes - KIDNEY FAILURE Review of Systems Eye: Reports: blurred vision; Denies: eye pain ENT: Denies: ear pain, nose congestion, throat swelling Respiratory: Denies: cough, shortness of breath Cardiovascular: Denies: chest pain, palpitations Gastrointestinal: Denies: abdominal pain, diarrhea, nausea, vomiting Musculoskeletal: Denies: back pain, joint pain Skin: Denies: rash Neurological: Denies: headache, numbness Endocrine: Denies: increased thirst, increased urine Hematologic/Lymphatic: Denies: easy bruising All Other Systems: negative except mentioned in HPI Physical Exam Vital Signs Date Time Temp Pulse Resp B/P (MAP) Pulse Ox O2 Delivery O2 Flow Rate FiO2 11/17/18 04:33 98.4 93 18 118/67 (84) 96 Room Air Vitals normal Sp02 EP Interpretation: reviewed, normal General Appearance: well appearing, no apparent distress, alert Head: normocephalic, atraumatic Eyes: bilateral eye PERRL, bilateral eye EOMI, bilateral eye other - Left eye: Sclerae very injected. Conjunctiva is injected. Cornea is cloudy with an ulcer on the medial aspect. ENT: hearing grossly normal, normal pharynx Neck: full range of motion, supple, no meningismus Respiratory: chest non-tender, lungs clear, normal breath sounds Cardiovascular #1: regular rate, rhythm, no murmur Gastrointestinal: normal bowel sounds, non tender, no mass, no organomegaly, no bruit, non-distended Musculoskeletal: back normal, gait/station normal, normal range of motion Psychiatric: mood/affect normal Medical Decision Making Diagnostic Impression: Primary Impression: Herpes simplex keratitis of left eye ER Course Patient with corneal ulcer but has dendritic lesion on fluorescein staining. This is concerning for herpes virus simplex infection. No evidence of deep infection or other lesion. We will put him on antiviral drops and follow-up with concrete finisher apprentice. Last Vital Signs Date Time Temp Pulse Resp B/P (MAP) Pulse Ox O2 Delivery O2 Flow Rate FiO2 11/17/18 04:33 98.4 93 18 118/67 (84) 96 Room Air Status: unchanged Disposition: HOME, SELF-CARE Condition: Stable Scripts Valacyclovir Hcl* (VALTREX*) 500 Mg Tablet 500 MG ORAL TWICE A DAY, #14 TAB Prov: Aj Sanders MD 11/17/18 Ganciclovir (ZIRGAN) 5 Gm Gel..gram. 5 GM OP FIVE TIMES A DAY, #1 UNIT Prov: Aj Sanders MD 11/17/18 Referrals: NOT CHOSEN IPA/,REFERRING (PCP) Additional Instructions: Follow-up with eye doctor within a week. You may need referral doctor for this. Return if symptoms worsen. Aj Sanders MD Nov 17, 2018 04:54
[2018-11-17] MEDS ORDERED: Fluorescein Strips LEFT EYE ONE (05:00)
[2018-11-17 05:09] VITALS: BP 118/67
[2018-11-17] MEDS ORDERED: VALACYCLOVIR500 MG ORAL (05:18)
[2018-11-17] MEDS ORDERED: ZIRGAN5 GM OP (05:18)
[2018-11-17 05:30] VITALS: BP 110/56
--- NOTE | 2018-11-17 05:30 | NUR ---
ED Nurse Note: pt cleared to be d/c per ERMD, pt discharge and aftercare instruction w/ prescription, pt education done via discussion and handout, pt advised to follow up with specialist or return to ed if changes in condition, vss, ambulatory w/ steady gait, left w/ all belongings.
== END 2018-11-17 05:30 | disposition home or self-care (01) ==
LOC: EMR 04:42
DX: B00.52 Herpesviral keratitis (principal)
CPT/HCPCS: 99283

== ENCOUNTER 2019-11-19 06:04 | Inpatient (IN) | payer MEDICARE, OTHER ==
[~2019-11-19] VITALS: Ht 170.2 cm; Wt 71.2 kg
[~2019-11-19 06:04] MED LIST changes: +VALACYCLOVIR500 MG ORAL; +ZIRGAN5 GM OP
--- NOTE | 2019-11-19 06:29 | Emergency Room Report ---
History of Present Illness General Chief Complaint: Dyspnea/Respdistress Source: Patient Present Illness HPI Disclaimer: Please note that this report is being documented using DRAGON technology. This can lead to erroneous entry secondary to incorrect interpretation by the dictating instrument. HPI: 34-year-old male history of ESRD hemodialysis TRS, anemia with previous transfusions, HIV compliant with medication presents for evaluation of shortness of breath. States he awoke this morning difficulty catching his breath. Denies cough, fever, sore throat, nasal congestion, changes in sense of smell or taste, nausea, vomiting, chest pain, palpitations. Denies history of asthma, COPD or other lung diseases. No known sick contacts. Denies recent travel. Completed his typical hemodialysis 2 days ago scheduled again tomorrow. Has required transfusions before but not in some time. PMH: Anemia, ESRD, HIV PSH: Dialysis catheters Allergies: Reviewed Social Hx: Reviewed Allergies: Coded Allergies: No Known Allergies (Unverified , 08/10/18) COVID-19 Screening Contact w/high risk pt: No Experienced COVID-19 symptoms?: No COVID-19 Testing performed HAND II TUBE BENDER: No Nursing Documentation-PMH Hx Cardiac Problems: No - HIV+ Hx Dialysis: Yes - KIDNEY FAILURE; Review of Systems All Other Systems: negative except mentioned in HPI Physical Exam Vital Signs Date Time Temp Pulse Resp B/P (MAP) Pulse Ox O2 Delivery O2 Flow Rate FiO2 11/19/19 06:06 99.0 87 18 177/108 (131) 92 Room Air General: Awake and alert, no acute distress HEENT: NC/AT. EOMI. Cardiovascular: RRR. S1 and S2 normal. Fistula left wrist palpable thrill Resp: Normal work of breathing. No cough, no wheezing. Crackles at the right lung base Abdomen: Abdomen is soft, nondistended. Nontender Skin: Intact. No abrasions, laceration or rash over the exposed skin MSK: Normal tone and bulk. Moving all extremities. No obvious deformity. Neuro: Awake and alert. Mentating appropriately. Procedures Critical Care Time Critical Care Time Total critical care time: Approximately 45 minutes Due to a high probability of clinically significant, life threatening deterioration, the patient required the highest level of preparedness to intervene emergently and I personally spent this critical care time directly and personally managing the patient. This critical care time included obtaining a history, examining the patient, pulse oximetry, ordering and reviewing studies , ordering treatments, evaluating response to treatment and updating management plan as needed, frequent reassessment and discussion with other providers as well as arranging for ultimate disposition. This critical to care time was performed to assess and manage the high probability of life-threatening deterioration that could result in multiorgan failure. This critical care time is separate from the separately billable procedures and treating other patients. Medical Decision Making Diagnostic Impression: Primary Impression: Hyperkalemia Additional Impressions: ESRD (end stage renal disease) on dialysis Pneumonia Elevated d-dimer History of HIV infection ER Course 34-year-old male history of ESRD, HIV, anemia presents for evaluation of sudden onset shortness of breath. Differential includes was not limited to viral syndrome, COVID-19 infection, pneumonia, CHF, fluid overload state, pneumothorax , bronchitis, PE, ACS, asthma, anemia to name a few. Given the crackles right lower lobe x-ray, labs were obtained. X-ray is concerning for right lower lobe infiltrate not seen on prior x-rays. He was treated with ceftriaxone and azithromycin. EKG showed slight peaking of T waves and blood work confirms elevation and potassium level of 5.6. Patient treated with calcium, insulin, glucose. Remainder labs consistent with the patient's history of ESRD. He is afebrile saturating 96% on room air. COVID-19 rapid swab is negative. Dimer slightly elevated. Will treat with Lovenox. Patient will be admitted to his PMD and sample washer, Dr. Valle. Laboratory Tests Test 11/19/19 06:30 White Blood Count 9.4 K/UL (4.8-10.8) Red Blood Count 4.06 M/UL (4.70-6.10) L Hemoglobin 12.0 G/DL (14.2-18.0) L Hematocrit 36.2 % (42.0-52.0) L Mean Corpuscular Volume 89 FL (80-99) Mean Corpuscular Hemoglobin 29.6 PG (27.0-31.0) Mean Corpuscular Hemoglobin Concent 33.1 G/DL (32.0-36.0) Red Cell Distribution Width 19.3 % (11.6-14.8) H Platelet Count 185 K/UL (150-450) Mean Platelet Volume 5.9 FL (6.5-10.1) L Neutrophils (%) (Auto) 63.9 % (45.0-75.0) Lymphocytes (%) (Auto) 23.0 % (20.0-45.0) Monocytes (%) (Auto) 5.6 % (1.0-10.0) Eosinophils (%) (Auto) 4.1 % (0.0-3.0) H Basophils (%) (Auto) 3.5 % (0.0-2.0) H Prothrombin Time Pending Prothrombin Time INR Pending Activated Partial Thromboplast Time Pending D-Dimer Pending Sodium Level 143 MMOL/L (136-145) Potassium Level 5.6 MMOL/L (3.5-5.1) H Chloride Level 104 MMOL/L (98-107) Carbon Dioxide Level 26 MMOL/L (21-32) Anion Gap 13 mmol/L (5-15) Blood Urea Nitrogen 45 mg/dL (7-18) H Creatinine 13.5 MG/DL (0.55-1.30) H Estimated Glomerular Filtration Rate 4.2 mL/min (>60) Glucose Level 93 MG/DL (74-106) Calcium Level 8.6 MG/DL (8.5-10.1) Total Bilirubin 0.8 MG/DL (0.2-1.0) Aspartate Amino Transferase (AST) Pending Alanine Aminotransferase (ALT) 17 U/L (12-78) Alkaline Phosphatase 68 U/L (46-116) Troponin I 0.031 ng/mL (0.000-0.056) Pro-B-Type Natriuretic Peptide > 79496 pg/mL (0-125) H Total Protein 8.6 G/DL (6.4-8.2) H Albumin 3.3 G/DL (3.4-5.0) L Globulin 5.3 g/dL Albumin/Globulin Ratio 0.6 (1.0-2.7) L Microbiology Date/Time Source Procedure Growth Status 11/19/19 06:30 Nasopharynx SARS-CoV-2 RdRp Gene Assay - Final Complete EKG Diagnostic Results EKG Time: 06:25 Rate: normal ST Segments: no acute changes Other Impression Sinus rhythm, left axis deviation, slightly peaked T waves V2, V3. Nonspecific T wave inversions lateral leads. Rhythm Strip Diag. Results Rhythm Strip Time: 06:25 EP Interpretation: yes Rate: 80s Rhythm: NSR, no PVC's, no ectopy Chest X-Ray Diagnostic Results Chest X-Ray Diagnostic Results : Chest X-Ray Ordered: Yes # of Views/Limited/Complete: 1 View Indication: Shortness of Breath EP Interpretation: Yes Interpretation: other - Consolidation in the right lower lobe consistent with pneumonia, mild effusion Impression: Other - Right lower lobe pneumonia Electronically Signed by: Electronically signed by Dr. Bacilio Fletcher Last Vital Signs Date Time Temp Pulse Resp B/P (MAP) Pulse Ox O2 Delivery O2 Flow Rate FiO2 11/19/19 06:06 99.0 87 18 177/108 (131) 92 Room Air Disposition: ADMITTED INPATIENT Condition: Serious Bacilio Fletcher MD Nov 19, 2019 06:29
[2019-11-19 06:39] VITALS: BP 177/108
[2019-11-19 06:52] LABS: BASOPHILS % (AUTO) 3.5 % (0.0-2.0); EOSINOPHILS % (AUTO) 4.1 % (0.0-3.0); HEMATOCRIT 36.2 % (42.0-52.0); MEAN CORPUSCULAR VOLUME 89 FL (80-99); MONOCYTES % (AUTO) 5.6 % (1.0-10.0); NEUTROPHILS % (AUTO) 63.9 % (45.0-75.0); PLATELET COUNT 185 K/UL (150-450); RED BLOOD COUNT 4.06 M/UL (4.70-6.10); RED CELL DISTRIBUTION WIDTH 19.3 % (11.6-14.8); WHITE BLOOD COUNT 9.4 K/UL (4.8-10.8)
[2019-11-19 07:04] LABS: ANION GAP 13 mmol/L (5-15); BLOOD UREA NITROGEN 45 mg/dL (7-18); CALCIUM 8.6 MG/DL (8.5-10.1); CARBON DIOXIDE 26 MMOL/L (21-32); CHLORIDE 104 MMOL/L (98-107); CREATININE 13.5 MG/DL (0.55-1.30); POTASSIUM 5.6 MMOL/L (3.5-5.1); SODIUM 143 MMOL/L (136-145)
[2019-11-19 07:15] LABS: ALANINE AMINOTRANSFERASE 17 U/L (12-78); ALBUMIN 3.3 G/DL (3.4-5.0); ALBUMIN/GLOBULIN RATIO 0.6 (1.0-2.7); ALKALINE PHOSPHATASE 68 U/L (46-116); BILIRUBIN,TOTAL 0.8 MG/DL (0.2-1.0)
[2019-11-19] MEDS ORDERED: Calcium Gluconate 1gm/10ml vial IVP ONE (07:15)
[2019-11-19] MEDS ORDERED: cefTRIAXone 1 GM in NS 55 ML IVPB ONE (07:15)
[2019-11-19] MEDS ORDERED: Azithromycin 500 MG in NS 275 ML IV ONE (07:15)
[2019-11-19] MEDS ORDERED: Insulin Human Regular 100units/ml 3ml IV ONE (07:15)
--- NOTE | 2019-11-19 07:39 | Diagnostic Imaging Report ---
EXAM: XR Chest, 1 View CLINICAL HISTORY: SOB TECHNIQUE: Frontal view of the chest. COMPARISON: CXR 08/17/2019 FINDINGS/IMPRESSION: Patchy airspace opacity throughout the right lower lung field consistent with severe infiltrate. These changes are also present in the left upper lung field to a lesser extent. Follow-up chest radiograph recommend. These findings were not present on 08/17/2019. No pneumothorax. Enlarged heart.
[2019-11-19 07:57] LABS: INR 1.1 (0.9-1.1)
[2019-11-19 08:00] LABS: ASPARTATE AMINO TRANSFERASE 66 U/L (15-37)
[2019-11-19 08:01] VITALS: BP 163/124
[2019-11-19] MEDS ORDERED: Enoxaparin 60mg Inj SUBQ ONE (08:45)
[2019-11-19] MEDS ORDERED: Dolutegravir Sodium 50mg tab ORAL SCH (09:30)
[2019-11-19 09:37] VITALS: BP 150/112
--- NOTE | 2019-11-19 11:15 | Consultation ---
DATE OF CONSULTATION: 11/19/2019 NEPHROLOGY CONSULTATION CONSULTING PHYSICIAN: Isaac Valle MD. REFERRING PHYSICIAN: Cezar Slater MD. REASON FOR CONSULTATION: End-stage renal disease, CHF. 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 He has been relatively stable on dialysis. Today, he presents with increasing shortness of breath and imaging consistent with CHF or bilateral infiltrates. He has had increasing blood pressure over the past few months and medications have been given. There is no history of chest pain or coronary artery disease. PAST MEDICAL HISTORY: There is history of hypertension and HIV. PAST SURGICAL HISTORY: AV fistula and kidney biopsy. ALLERGIES: None known. MEDICATIONS: Prezcobix one daily, Tivicay one daily, losartan 100 mg daily, Ashley-Kellee one daily, sevelamer 800 mg three times a day. HABITS: He smokes marijuana occasionally. No alcohol or drugs. SYSTEM REVIEW: HEAD, EYES, EARS, NOSE, AND THROAT: Vision and hearing is good. ENDOCRINE: No diabetes or thyroid disease. PULMONARY: No history of TB or asthma. CARDIAC: No history of MD or arrhythmias. GASTROINTESTINAL: He has had some nausea and vomiting today. No history of ulcer disease or GI bleeding. GENITOURINARY: No dysuria or hematuria. NEUROLOGIC: No CVA or seizures. PHYSICAL EXAMINATION: GENERAL: The patient is alert, well-developed man, not in severe distress. VITAL SIGNS: Temperature 99, pulse 84, respirations 19, blood pressure 163/124. Pulse oximetry 96%. HEAD, EYES, EARS, NOSE, AND THROAT: Sclerae are nonicteric. Ocular motions intact in all directions. Oral mucosa moist. NECK: No adenopathy. LUNGS: Clear. HEART: Regular rhythm with 1/6 systolic ejection murmur. ABDOMEN: Soft without organomegaly or masses. EXTREMITIES: No edema, cyanosis, or clubbing. He has an AV fistula. NEUROLOGIC: He is alert and oriented. Cranial nerves are intact. LABORATORY AND DIAGNOSTIC DATA: Pertinent labs show potassium 5.6, BUN 45, creatinine 13.4, and BNP of greater than 35,000. Troponin 0.031. IMPRESSION: 1. Congestive heart failure, acute on chronic with diastolic dysfunction. 2. End-stage renal disease. 3. Hypertensive heart disease. 4. HIV positive. 5. Initial rapid COVID test negative. PLAN: The patient will have dialysis for fluid overload. Adjust medications. Watch closely for possible opportunistic infection. Isaac Valle M.D. DR: KEISHA JOB#: [id number] CC:
[2019-11-19 12:00] VITALS: BP 174/100
[2019-11-19] MEDS: Carvedilol 6.25mg Tab ORAL SCH ×2 (12:25→21:08)
[2019-11-19] MEDS: HydrALAZINE 50mg tab ORAL SCH ×3 (14:00→21:18)
[2019-11-19 16:00] VITALS: BP 154/94
[2019-11-19] MEDS: HYDROcodone/Acetamin 10/325 tab ORAL PRN (18:15)
[2019-11-19 20:00] VITALS: BP 152/95
[2019-11-19] MEDS: Losartan 50mg tab ORAL SCH (21:08)
[2019-11-19] MEDS: Heparin 5000 units/ml inj SUBQ SCH (21:11)
[2019-11-20] MEDS: HYDROcodone/Acetamin 10/325 tab ORAL PRN (01:17)
[2019-11-20 04:00] VITALS: BP 145/94
[2019-11-20] MEDS: HydrALAZINE 50mg tab ORAL SCH (05:44)
[2019-11-20 06:52] LABS: BASOPHILS % (AUTO) 2.2 % (0.0-2.0); EOSINOPHILS % (AUTO) 4.2 % (0.0-3.0); HEMATOCRIT 41.6 % (42.0-52.0); LYMPHOCYTES % (AUTO) 27.6 % (20.0-45.0); MEAN CORPUSCULAR VOLUME 87 FL (80-99); MONOCYTES % (AUTO) 7.3 % (1.0-10.0); NEUTROPHILS % (AUTO) 58.7 % (45.0-75.0); PLATELET COUNT 198 K/UL (150-450); RED BLOOD COUNT 4.75 M/UL (4.70-6.10); RED CELL DISTRIBUTION WIDTH 18.1 % (11.6-14.8); WHITE BLOOD COUNT 9.7 K/UL (4.8-10.8)
[2019-11-20 07:17] LABS: ANION GAP 6 mmol/L (5-15); BLOOD UREA NITROGEN 33 mg/dL (7-18); CALCIUM 9.2 MG/DL (8.5-10.1); CARBON DIOXIDE 30 MMOL/L (21-32); CHLORIDE 96 MMOL/L (98-107); CREATININE 11.1 MG/DL (0.55-1.30); POTASSIUM 3.7 MMOL/L (3.5-5.1); SODIUM 131 MMOL/L (136-145)
[2019-11-20 08:00] VITALS: BP 146/93
[2019-11-20] MEDS ORDERED: Heparin Sod 1000 units/ml 10ml IV PRN (08:00)
[2019-11-20] MEDS: Carvedilol 6.25mg Tab ORAL SCH (09:00)
[2019-11-20] MEDS ORDERED: Patient's Own Med - Tivicay 50mg ORAL SCH (09:00)
[2019-11-20] MEDS ORDERED: Nephrovite tab (Rena-Vite) ORAL SCH (09:00)
[2019-11-20] MEDS ORDERED: Patient's Own Med - Prezcobix 800/150mg ORAL SCH (09:00)
[2019-11-20] MEDS: Losartan 50mg tab ORAL SCH (09:01)
[2019-11-20] MEDS: Heparin 5000 units/ml inj SUBQ SCH (09:14)
--- NOTE | 2019-11-20 09:15 | History and Physical Report ---
DATE OF ADMISSION: 11/19/2019 CHIEF COMPLAINT: Shortness of breath. HISTORY OF PRESENT ILLNESS: This patient is a 34-year-old male known to me from prior admissions. He presents with complaints of worsening shortness of breath. He has a history of HIV and hypertension, as well as chronic kidney disease on hemodialysis. He denies any fevers or chills. He has had no cough. On evaluation in the emergency room, his x-ray showed evidence of pulmonary vascular congestion and heart failure. He also had a potassium of 5.7. He is now admitted for further treatment for congestive heart failure. PAST MEDICAL HISTORY: As above. CURRENT MEDICATIONS: Reconciled and reviewed. ALLERGIES: None. FAMILY HISTORY: None. SOCIAL HISTORY: Negative for tobacco, ethanol, or drugs. REVIEW OF SYSTEMS: GENERAL: No fevers or chills. HEENT: No headaches or visual changes. CARDIOPULMONARY: No chest pain. Positive shortness of breath. No cough. GASTROINTESTINAL: No nausea or vomiting. GENITOURINARY: No urgency or frequency. MUSCULOSKELETAL: No joint pain or swelling. NEUROLOGIC: No evidence of seizures. PHYSICAL EXAMINATION: VITAL SIGNS: Temperature 98.2, pulse 86, respirations 21, blood pressure 165/92. GENERAL: The patient is a well-developed male, in no apparent distress. Awake, alert, and oriented x4. HEENT: Head is normocephalic and atraumatic. Pupils . Sclerae are anicteric. Oropharynx clear. NECK: Supple. HEART: Regular rate and rhythm. LUNGS: Significant for diminished breath sounds at the bases. ABDOMEN: Soft, nontender, nondistended. EXTREMITIES: No clubbing, cyanosis, or edema. LABORATORY DATA: White count 9, hemoglobin 12, platelets of 185,000. Sodium 143, potassium 5.6. Troponin 0.031. Natriuretic peptide level was greater than 35,000. Chest x-ray shows CHF. ASSESSMENT: This is a 34-year-old male with a history of end-stage renal disease and HIV, who presents with complaints of shortness of breath secondary to volume overload and congestive heart failure. PLAN: 1. HD with ultrafiltration. 2. Titrate antihypertensive regimen. 3. DVT and stress ulcer prophylaxes. 4. Continue HIV medications. Cezar Slater M.D. DR: JERRY JOB#: [id number] CC:
[2019-11-20 12:00] VITALS: BP 145/98
[2019-11-20] MEDS ORDERED: APRESOLINE50 MG ORAL (12:34)
[2019-11-20] MEDS ORDERED: NORVASC10 MG ORAL (12:34)
[2019-11-20] MEDS ORDERED: COREG12.5 MG ORAL (12:34)
--- NOTE | 2019-11-20 12:47 | Diagnostic Imaging Report ---
Indication: Shortness of breath Technique: One view of the chest Comparison: 11/19/2019 Findings: Previously demonstrated bilateral infiltrates versus edema, right greater than left, have improved considerably, although there is still residual disease bilaterally. The heart remains enlarged. The pleural spaces are clear. Impression: Improved bilateral infiltrates versus edema, over one day
[2019-11-20 16:00] VITALS: BP 140/80
[2019-11-20] MEDS ORDERED: HydrALAZINE 50mg tab ORAL SCH (16:30)
--- NOTE | 2019-11-20 16:49 | Diagnostic Imaging Report ---
Indication: Bilateral leg pain Technique: Grayscale and duplex images of the bilateral lower extremity veins Comparison: None Findings: Bilaterally, grayscale and duplex images demonstrate no evidence of intraluminal thrombus. Normal phasic Doppler waveforms, demonstrating normal augmentation response and no evidence of valvular insufficiency. Greater saphenous vein(s) and tibial veins are patent. Normal compressibility. Impression: Negative for evidence of lower extremity deep venous thrombosis bilaterally
--- NOTE | 2019-11-20 17:07 | Nephrology Progress Note ---
Assessment/Plan Problem List: (1) End-stage renal disease (2) Anemia in chronic kidney disease (3) CHF (congestive heart failure) (4) Hypertensive nephrosclerosis Plan feels better, bp meds adjusted, HD 11/19 then dc, I will follow Subjective Constitutional: Reports: no symptoms HEENT: Reports: no symptoms Genitourinary: Reports: no symptoms Neurologic/Psychiatric: Reports: no symptoms Objective Objective Last 24 Hour Vital Signs Date Time Temp Pulse Resp B/P (MAP) Pulse Ox O2 Delivery O2 Flow Rate FiO2 11/20/19 12:00 98.1 93 20 145/98 (114) 93 11/20/19 12:00 93 11/20/19 09:02 81 146/93 11/20/19 09:01 146/93 11/20/19 09:00 Room Air 11/20/19 09:00 81 146/93 11/20/19 08:00 98.6 93 20 146/93 (110) 95 11/20/19 08:00 93 11/20/19 05:44 148/96 11/20/19 04:00 98.2 86 21 145/94 (111) 97 11/20/19 04:00 86 11/20/19 01:13 163/98 11/19/19 21:18 165/92 11/19/19 21:08 90 165/92 11/19/19 21:08 165/92 11/19/19 21:00 Room Air 11/19/19 20:00 90 11/19/19 20:00 97.9 94 22 152/95 (114) 94 11/19/19 18:42 97.5 11/19/19 17:15 154/88 Intake and Output 11/19/19 11/20/19 19:00 07:00 Intake Total 350 ml Output Total 3000 ml Balance -2650 ml Intake Oral 350 ml Output Hemodialysis UF 3000 ml # Bowel Movements 1 Laboratory Tests 11/20/19 06:05: White Blood Count 9.7, Red Blood Count 4.75, Hemoglobin 14.0L, Hematocrit 41.6L , Mean Corpuscular Volume 87, Mean Corpuscular Hemoglobin 29.6, Mean Corpuscular Hemoglobin Concent 33.8, Red Cell Distribution Width 18.1H, Platelet Count 198, Mean Platelet Volume 6.0L, Neutrophils (%) (Auto) 58.7, Lymphocytes (%) (Auto) 27.6, Monocytes (%) (Auto) 7.3, Eosinophils (%) (Auto) 4.2H, Basophils (%) (Auto) 2.2H, Sodium Level 131#L, Potassium Level 3.7, Chloride Level 96L, Carbon Dioxide Level 30, Anion Gap 6, Blood Urea Nitrogen 33H, Creatinine 11.1H, Estimat Glomerular Filtration Rate 5.3, Glucose Level 101 , Calcium Level 9.2, Troponin I 0.037, Thyroid Stimulating Hormone (TSH) 1.812 Height (Feet): 5 Height (Inches): 7.00 Weight (Pounds): 157 General Appearance: no apparent distress, alert EENT: normal ENT inspection Neck: normal alignment Cardiovascular: normal rate Respiratory/Chest: lungs clear Abdomen: non tender, soft Extremities: no edema 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
[2019-11-20 17:28] VITALS: BP 140/80
[2019-11-20] MEDS ORDERED: Carvedilol 12.5mg tab ORAL SCH (21:00)
--- NOTE | 2019-11-23 10:56 | Discharge Summary ---
Discharge Summary Discharge Summary _ DATE OF ADMISSION: 11/19/2019 DATE OF DISCHARGE: 11/20/2019 DISCHARGED BY: Dr. Slater REASON FOR ADMISSION: 34 years old male with past medical history of hypertension, HIV, chronic kidney disease, on hemodialysis, presented with shortness of breath. He denied fever and chills. He denied cough. Pulse oximetry wads stable on room air. No fevers. Chest x-ray showed pulmonary vascular congestion and heart failure . Laboratory work-up revealed no leukocytosis, hemoglobin 12, hematocrit 36.2. BUN 45, creatinine 13.51 , consistent with known history of end-stage renal disease. Potassium 5.6. EKG showed slight peaking of T waves. Rapid COVID-19 negative. D-dimer elevated 1.6. In emergency department patient received ceftriaxone and azithromycin for possible pneumonia. Hyperkalemia was treated with calcium, insulin, and glucose. Patient received 1 dose of Lovenox. Patient subsequently admitted to telemetry floor for further management. CONSULTANTS: auto clutch specialist Dr. Valle HOSPITAL COURSE: Patient admitted to telemetry floor Gang Mower Operator consulted. Patient undergone hemodialysis with close monitoring of volumes, renal parameters and electrolytes. Home medication continued. Blood pressure was managed with multiple antihypertensive medication regimen and remained stable. Venous duplex bilateral lower extremity revealed no evidence of acute DVT. DVT prophylaxis provided. Follow-up chest x-ray, done after hemodialysis , demonstrated improved bilateral infiltrates versus edema over 1 day . Patient remained afebrile, no leukocytosis patient. Pulse oximetry remained stable on room air. Patient clinically stabilized and was ready for discharge. Due to rapid and unexpected improvement in patient condition, patient was discharged in 1 day. FINAL DIAGNOSES: Fluid overload End-stage renal disease, on hemodialysis with fluid overload Congestive heart failure Hypertensive nephrosclerosis Anemia of chronic kidney disease HIV DISCHARGE MEDICATIONS: See Medication Reconciliation list. DISCHARGE INSTRUCTIONS: He was discharged home. Follow-up with outpatient hemodialysis as scheduled. Follow-up with a primary care provider in 1 to 2 weeks. I have been assigned to dictate discharge summary for this account. I was not involved in the patient's management. Leia Galloway NP Nov 23, 2019 10:56
== END 2019-11-20 18:05 | disposition home or self-care (01) | DRG 291 ==
LOC: EMR 06:24 → 2E 07:29 → EDBEDREQ 08:43
PROC: 5A1D70Z Performance of Urinary Filtration, Intermittent, Less than 6 Hours Per Day (ICD-10-PCS; principal; 2019-11-20)
DX: I13.2 Hypertensive heart and chronic kidney disease with heart failure and with stage 5 chronic kidney disease, or end stage renal disease (principal); N18.6 End stage renal disease; I50.33 Acute on chronic diastolic (congestive) heart failure; E87.79 Other fluid overload; Z99.2 Dependence on renal dialysis; E87.5 Hyperkalemia; D63.1 Anemia in chronic kidney disease
CPT/HCPCS: 36415; 71045; 80048; 80053; 83880; 84443; 84484; 85025; 85379; 85610; 85730; 87040; 87081; 93005; 93306; 93970; 96365; 96368; 96372; 96375; 99291; U0002